=== PATIENT | male | born 1965 | race Caucasian/White ===

== ENCOUNTER 2017-01-18 23:22 | Emergency (ER) | payer BC ==
[2017-01-18 23:30] VITALS: BP 122/79; PULSE 100; TEMP 98; BMI 22.5
--- NOTE | 2017-01-18 23:35 | PDOC ---
History of Present Illness - General Chief Complaint: Pain, Acute Stated Complaint: ABCESS LEFT GROIN Time Seen by Provider: 01/18/17 23:30 History Source: Patient, Primary Care Provider Exam Limitations: No Limitations - History of Present Illness Initial Comments: 01/18/17 23:30 52 Y M cad, DM, sennt from pmd's office for lt groin abscess for 4 days. no fever or chills. no abd pain. no dysuria. in nad. Past History - Past Medical History Allergies/Adverse Reactions: Allergies Allergy/AdvReac Type Severity Reaction Status Date / Time No Known Allergies Allergy Verified 01/18/17 23:23 Home Medications: Ambulatory Orders Metformin HCl [Glucophage] 1,000 mg PO BID 05/14/14 Aspirin [ASA -] 81 mg PO DAILY 09/07/14 Glyburide 5 mg PO DAILY 09/07/14 Lisinopril [Prinivil -] 5 mg PO DAILY 09/07/14 Metoprolol Succinate [Toprol Xl] 75 mg PO DAILY 09/07/14 Pantoprazole Sodium [Protonix] 40 mg PO DAILY 09/07/14 Rosuvastatin [Crestor -] 40 mg PO DAILY 09/07/14 Ticagrelor [Brilinta] 90 mg PO BID 09/07/14 Isosorbide Mononitrate [Isosorbide Mononitrate ER] 30 mg PO DAILY 02/18/15 Benzonatate [Tessalon Pearls -] 100 mg PO TID #21 capsule 10/20/15 Cardiac Disorders: Yes (stent) Diabetes: Yes HTN: Yes Hypercholesterolemia: Yes - Surgical History Cardiac Surgery: Yes (cardiac stent 4) - Immunization History Immunization Up to Date: Yes - Psycho/Social/Smoking Cessation Hx Anxiety: No Suicidal Ideation: No Smoking History: Current every day smoker Have you smoked in the past 12 months: Yes Number of Cigarettes Smoked Daily: 20 If you are a former smoker, when did you quit?: this week Information on smoking cessation initiated: Yes 'Breaking Loose' booklet given: 10/20/15 Hx Alcohol Use: No Drug/Substance Use Hx: No Substance Use Type: None Hx Substance Use Treatment: No Review of Systems - Review of Systems Able to Perform ROS?: Yes Is the patient limited Setswana proficient: No Constitutional: No: Symptoms Reported Respiratory: No: Symptoms reported Cardiac (ROS): No: Symptoms Reported ABD/GI: No: Symptoms Reported : Yes: See HPI. No: Symptoms Reported *Physical Exam - Vital Signs Last Vital Signs Temp Pulse Resp BP Pulse Ox 98 F 100 H 16 122/79 100 01/18/17 23:25 01/18/17 23:25 01/18/17 23:25 01/18/17 23:25 01/18/17 23:25 - Physical Exam General Appearance: Yes: Nourished, Appropriately Dressed. No: Apparent Distress HEENT: positive: Normal ENT Inspection Respiratory/Chest: negative: Respiratory Distress Cardiovascular: positive: Regular Rhythm, Regular Rate Gastrointestinal/Abdominal: positive: Normal Bowel Sounds, Soft. negative: Tender Male Genitalia: positive: normal genitalia, other (lt pubic abscess 4x3 cm tender and fluctuant to bas of shaft. no bruits. away from inguinal canal.). negative: discharge, testicular tenderness, testicular mass Neurologic: positive: Normal Response, Motor Strength 5/5 Procedures - Incision and Drainage I&D Site: Left: Groin Betadine cleansed: No Anesthesia: 2% Lidocaine Volume(ml): 5 Blade Size: 11 Iodinated Packin/4 in Plain Packing: No Complications: none Dressing: Yes *DC/Admit/Observation/Transfer Diagnosis at time of Disposition: Abscess of groin - Discharge Dispostion Disposition: HOME Condition at time of disposition: Stable - Referrals Referrals: Kenji Mayberry [Primary Care Provider] - 24 hours - Patient Instructions Additional Instructions: KEEP PACKING AND DRESSING DRY REMOVE PACKING ON TUESDAY CALL DR. DEAN TOMORROW FOR APPOINTMENT YOU DON'T NEED ANTIBIOTICS AT THIS POINT TYLENOL/IBUPROFEN FOR PAIN 'RETURN IF FEVER SEVERE PAIN, OR BLEEDING
== END 2017-01-18 23:41 | disposition home or self-care (01) ==
LOC: FER 23:22
PROC: 0H9AXZZ Drainage of Inguinal Skin, External Approach (ICD-10-PCS; principal; 2017-01-18)
DX: L02.214 Cutaneous abscess of groin (principal); F17.210 Nicotine dependence, cigarettes, uncomplicated; I10 Essential (primary) hypertension; E11.9 Type 2 diabetes mellitus without complications; Z95.5 Presence of coronary angioplasty implant and graft; E78.00 Pure hypercholesterolemia, unspecified
CPT/HCPCS: 87070; 87186; 87205; 99281-25

== ENCOUNTER 2017-01-20 20:23 | Inpatient (IN) | payer BC ==
--- NOTE | 2017-01-20 20:44 | PDOC ---
History of Present Illness - General History Source: Patient Exam Limitations: No Limitations - History of Present Illness Initial Comments: 01/20/17 20:59 The patient is a 52 year old male, with a significant past medical history of CAD x4 stents, GERD, HTN, hypercholesterolemia, and DM (on insulin), who presents to the emergency department with recent nausea, vomiting, and diarrhea for about 2 days. The patient reports being seen in this ER tuesday, to have a left groin abscess removed. He reports since his ER visit being symptomatic, noting the development of multiple episodes of nonbloody vomiting and diarrhea. The patient reports the diarrhea started first, with the onset of vomiting soon after. He denies eating any new/strange foods. He reports being unable to keep any solids or liquids down secondary to vomiting. He reports having decreased pain at his abscess site. He denies having any previous prescriptions of antibiotics for his abscess. He denies any abdominal pain. He denies any recent fevers, headache or dizziness. He denies any recent chest pain or shortness of breath. He denies any recent dysuria, frequency, urgency or hematuria. PAST MEDICAL HISTORY: See HPI PAST SURGICAL HISTORY: Cardiac stents x4 FAMILY HISTORY: No pertinent history. SOCIAL HISTORY: Patient lives with family and is employed. MEDICATIONS: Reviewed. ALLERGIES: As per nursing notes. ROS General: No fevers or chills. HEENT: No change in vision. No sore throat. No ear pain CardioVascular: No chest pain or shortness of breath Respiratory:No cough, or wheezing. Gastrointestinal: + nausea, vomiting, diarrhea. No constipation. No rectal bleeding Genitourinary: No dysuria, hematuria, or frequency Musculoskeletal: No joint or muscle pain or swelling Neurologic: No headache, vertigo, dizziness or loss of consciousness Psychiatric: No depression Skin: No rashes or easy bruising Endocrine: no increased thirst or abnormal weight change Allergic: no skin or latex allergy All other systems reviewed and normal Exam: General: Well-nourished well-developed individual, no acute distress HEENT: Dry mucous membranes. Throat: Normal, tonsils normal, no erythema or exudate Neck: Supple, no meningeal signs, no lymphadenopathy Eyes: Pupils equal reactive and round, extraocular motion intact Chest: Nontender to palpation Cardiac: +tachycardia. S1-S2 normal, regular rate and rhythm, no murmurs rubs or gallops Respiratory: Lungs clear to auscultation bilateral Abdomen: Soft, nondistended, increased bowel sounds, nontender to palpation diffusely Extremities: LEFT GROIN: dressing in place. Post removal of dressing, packing was also removed incisions appear clean. No purulence, mild erythema to the area. But no increase in warmth or palpable collection. Skin: No rashes Neuro: Alert and oriented x3, nonfocal exam, grossly intact, normal gait Psych: Normal mood and affect <Cody Grey - Last Filed: 01/20/17 20:59> - General History Source: Patient Exam Limitations: No Limitations - History of Present Illness Initial Comments: 01/20/17 22:39 A portion of this note was documented by scribe services under my direction. I have reviewed the details of the note, within reason, and agree with the documentation. The case summary and management plan written by me. Assessment and plan This is a 52-year-old male who comes in complaining of nausea vomiting and diarrhea. Patient is a type II diabetic. Patient's blood work shows that he is very dehydrated with a hemoglobin of 18. Patient is being hydrated with IV normal saline. Patient has history of a recent I and D of a groin abscess given the fact that he is a diabetic I will ever the abscess cavity does look clean I was give patient a gram of Rocephin to cover him for any possible soft skin infection. Patient did complain of some chest pain his cardiogram shows a sinus tachycardia no acute ST-T wave changes. Sinus tachycardia likely secondary to his dehydration. Patient's initial troponin was negative. Patient blood work did show a high anion gap that was 21. Patient had a venous blood gas that showed a normal pH and a lactic acid that was negative the high anion gap is most likely secondary to ketosis and dehydration. Discussed admission with immediately would admit patient to a inpatient telemetry noncardiac telemetry bed. <Solo Lo I - Last Filed: 01/20/17 22:43> - General Chief Complaint: Nausea/Vomiting Stated Complaint: NAUSEA/VOMITING Time Seen by Provider: 01/20/17 20:28 Past History <Cody Grey - Last Filed: 01/20/17 20:59> - Past Medical History Cardiac Disorders: Yes (stent) Diabetes: Yes HTN: Yes Hypercholesterolemia: Yes - Surgical History Cardiac Surgery: Yes (cardiac stent 4) - Immunization History Immunization Up to Date: Yes - Psycho/Social/Smoking Cessation Hx Anxiety: No Suicidal Ideation: No Smoking History: Unknown if ever smoked Have you smoked in the past 12 months: Yes Number of Cigarettes Smoked Daily: 20 If you are a former smoker, when did you quit?: this week 'Breaking Loose' booklet given: 10/20/15 Hx Alcohol Use: No Drug/Substance Use Hx: No Substance Use Type: None Hx Substance Use Treatment: No <Solo Lo I - Last Filed: 01/20/17 22:43> - Past Medical History Allergies/Adverse Reactions: Allergies Allergy/AdvReac Type Severity Reaction Status Date / Time No Known Allergies Allergy Verified 01/18/17 23:23 Home Medications: Ambulatory Orders Metformin HCl [Glucophage] 1,000 mg PO BID 05/14/14 Aspirin [ASA -] 81 mg PO DAILY 09/07/14 Glyburide 5 mg PO DAILY 09/07/14 Lisinopril [Prinivil -] 5 mg PO DAILY 09/07/14 Metoprolol Succinate [Toprol Xl] 75 mg PO DAILY 09/07/14 Pantoprazole Sodium [Protonix] 40 mg PO DAILY 09/07/14 Rosuvastatin [Crestor -] 40 mg PO DAILY 09/07/14 Ticagrelor [Brilinta] 90 mg PO BID 09/07/14 Isosorbide Mononitrate [Isosorbide Mononitrate ER] 30 mg PO DAILY 02/18/15 Benzonatate [Tessalon Pearls -] 100 mg PO TID #21 capsule 10/20/15 *Physical Exam - Vital Signs Last Vital Signs Temp Pulse Resp BP Pulse Ox 97.4 F L 108 H 18 128/78 100 01/20/17 20:28 01/20/17 20:28 01/20/17 20:28 01/20/17 20:28 01/20/17 20:28 <Cody Grey - Last Filed: 01/20/17 20:59> - Vital Signs Last Vital Signs Temp Pulse Resp BP Pulse Ox 97.4 F L 108 H 18 128/78 100 01/20/17 20:28 01/20/17 20:28 01/20/17 20:28 01/20/17 20:28 01/20/17 20:28 <Solo Lo I - Last Filed: 01/20/17 22:43> ED Treatment Course - LABORATORY CBC & Chemistry Diagram: 01/20/17 21:01 01/20/17 21:01 <Solo Lo I - Last Filed: 01/20/17 22:43> *DC/Admit/Observation/Transfer - Attestations Scribe Attestion: 01/20/17 20:46 Documentation prepared by Cody Grey, acting as certified medical technician assistant for Solo oL MD. <Cody Grey - Last Filed: 01/20/17 20:59> - Discharge Dispostion Admit: Yes <Solo Lo I - Last Filed: 01/20/17 22:43> Diagnosis at time of Disposition: Groin abscess, Gastroenteritis, Dehydration, Hyperglycemia Chest pain Qualifiers: Chest pain type: unspecified Qualified Code(s): R07.9 - Chest pain, unspecified - Discharge Dispostion Condition at time of disposition: Stable - Referrals Referrals: Kenji Mayberry [Primary Care Provider] -
[2017-01-20] MEDS ORDERED: SODIUM CHLORIDE 1,000 ML IV ONE (20:47)
[2017-01-20] MEDS ORDERED: ONDANSETRON 4 MG/2 ML VIAL IVPB ONE (20:48)
[2017-01-20] MEDS ORDERED: HEMOQUE TEST 1 EACH EACH ONE (20:55)
[2017-01-20] MEDS ORDERED: ONDANSETRON 4 MG/2 ML VIAL ONE (20:59)
[2017-01-20 21:09] LABS: URINE APPEARANCE Clear; URINE BILIRUBIN 1+ (NEGATIVE); URINE BLOOD Negative (NEGATIVE); URINE GLUCOSE (UA) 2+ (NEGATIVE); URINE KETONE 4+ (NEGATIVE); URINE LEUK ESTERASE Negative (NEGATIVE); URINE NITRITE Negative (NEGATIVE); URINE PROTEIN Negative (NEGATIVE); URINE UROBILINOGEN 0.2 E.U/dl (0.2-1.0)
[2017-01-20 21:10] LABS: BASOPHIL 3.5 % (0-2.0); MCH 29.5 pg (25.7-33.7); MCHC 33.7 g/dl (32.0-35.9); MEAN CELL VOLUME 87.4 fl (80-96); MEAN PLT VOLUME 7.7 fl (7.5-11.1); NEUTROPHILS 76.1 % (42.8-82.8); PLATELET COUNT 404 K/MM3 (134-434); RDW 14.2 % (11.9-15.9); WHITE BLOOD COUNT 12.5 K/mm3 (4.0-10.0)
[2017-01-20 21:17] LABS: URINE COLOR YELLOW
[2017-01-20 21:25] LABS: ALBUMIN 3.9 g/dl (3.5-5.0); ALK PHOS 96 U/L (32-92); ANION GAP 21 (8-16); BILIRUBIN,TOTAL 0.6 mg/dl (0.2-1.0); CALCIUM 13.7 mg/dl (8.4-10.2); CO2 23 mmol/L (22-28); CPK(DFH) 27 IU/L (38-174); GLUCOSE,RANDOM 274 mg/dl (74-106); SGOT/AST 15 U/L (10-42); SGPT/ALT 13 U/L (10-40); TOT PROT 7.2 g/dl (6.4-8.3)
[2017-01-20 21:55] LABS: TROPONIN I (DFP) < 0.03 ng/ml (0.03-0.50)
[2017-01-20 22:18] LABS: VENOUS BLOOD GAS HCO3 23.5 meq/L (22-26)
[2017-01-20 22:19] LABS: VENOUS PH 7.37 (7.35-7.45)
[2017-01-20] MEDS ORDERED: cefTRIAXone 1 GM/50 ML BAG (PRE-DOCKED) IVPB STA (22:38)
[2017-01-20] MEDS ORDERED: cefTRIAXone SODIUM 1 GM VIAL ONE (22:40)
[2017-01-20] MEDS ORDERED: ACETAMINOPHEN 325 MG TABLET (FP) PO PRN (23:50)
[2017-01-21] MEDS: SODIUM CHLORIDE 1,000 ML IV SCH ×2 (00:56→23:19)
[2017-01-21 01:30] VITALS: BMI 21.9
[2017-01-21] MEDS ORDERED: RANITIDINE HCL 150 MG TABLET (FP) PO ONE (03:10)
[2017-01-21 05:46] LABS: TROPONIN I < 0.02 ng/ml (0.00-0.05)
[2017-01-21] MEDS: glyBURIDE 5 MG TABLET (UD) PO SCH (06:33)
[2017-01-21 08:52] LABS: BASOPHIL 1.1 % (0-2.0); EOSINOPHIL 1.5 % (0-4.5); MCH 29.6 pg (25.7-33.7); MCHC 33.8 g/dl (32.0-35.9); MEAN CELL VOLUME 87.6 fl (80-96); MEAN PLT VOLUME 7.6 fl (7.5-11.1); NEUTROPHILS 72.6 % (42.8-82.8); PLATELET COUNT 350 K/MM3 (134-434); WHITE BLOOD COUNT 10.4 K/mm3 (4.0-10.0)
[2017-01-21 09:05] LABS: ALBUMIN 3.2 g/dl (3.5-5.0); ALK PHOS 75 U/L (32-92); ANION GAP 13 (8-16); BILIRUBIN,TOTAL 0.3 mg/dl (0.2-1.0); CALCIUM 10.6 mg/dl (8.4-10.2); CO2 18 mmol/L (22-28); CREATININE 0.9 mg/dl (0.6-1.3); GLUCOSE,RANDOM 171 mg/dl (74-106); SGOT/AST 11 U/L (10-42); SGPT/ALT 11 U/L (10-40); TOT PROT 5.9 g/dl (6.4-8.3)
[2017-01-21] MEDS ORDERED: CEFTRIAXONE 1 GM in DEXTROSE 5%-WATER - 100 ML IVPB SCH (10:00)
[2017-01-21] MEDS: LISINOPRIL 5 MG TABLET (FP) PO SCH (10:57)
[2017-01-21] MEDS: cefTRIAXone 1 GM/50 ML BAG (PRE-DOCKED) IVPB SCH (10:57)
[2017-01-21] MEDS: ISOSORBIDE MONONITRATE 30 MG TAB.SR.24H (FP) PO SCH (10:57)
--- NOTE | 2017-01-21 11:53 | HP ---
Admitting History and Physical - Primary Care Physician PCP: Jaxon Tsai - Admission History of Present Illness: The patient is a 52 year old male, with a significant past medical history of CAD x4 stents, GERD, HTN, hypercholesterolemia, and DM (on insulin), who presents to the emergency department with recent nausea, vomiting, and diarrhea for about 2 days. The patient reports being seen in this ER tuesday, to have a left groin abscess removed. He reports since his ER visit being symptomatic, noting the development of multiple episodes of nonbloody vomiting and diarrhea. He reports being unable to keep any solids or liquids down secondary to vomiting. He reports having decreased pain at his abscess site. He denies having any previous prescriptions of antibiotics for his abscess. - Past Medical History Cardiovascular: Yes: HTN, Hyperlipdemia, [place] Endocrine: Yes: Diabetes Mellitus - Past Surgical History Past Surgical History: Yes: Stent - Smoking History Smoking history: Unknown if ever smoked Have you smoked in the past 12 months: Yes Aproximately how many cigarettes per day: 20 If you are a former smoker, when did you quit?: this week - Alcohol/Substance Use Hx Alcohol Use: No Home Medications - Allergies Allergies/Adverse Reactions: Allergies Allergy/AdvReac Type Severity Reaction Status Date / Time No Known Allergies Allergy Verified 01/18/17 23:23 - Home Medications Home Medications: Ambulatory Orders Metformin HCl [Glucophage] 1,000 mg PO BID 05/14/14 Aspirin [ASA -] 81 mg PO DAILY 09/07/14 Glyburide 5 mg PO DAILY 09/07/14 Lisinopril [Prinivil] 5 mg PO DAILY 09/07/14 Metoprolol Succinate [Toprol Xl] 75 mg PO DAILY 09/07/14 Pantoprazole Sodium [Protonix] 40 mg PO DAILY 09/07/14 Rosuvastatin [Crestor -] 40 mg PO DAILY 09/07/14 Ticagrelor [Brilinta -] 90 mg PO BID 09/07/14 Isosorbide Mononitrate [Isosorbide Mononitrate ER] 30 mg PO DAILY 02/18/15 Benzonatate [Tessalon Perle -] 100 mg PO TID #21 capsule 10/20/15 Amoxicillin/Potassium Clav [Augmentin 875-125 Tablet] 1 each PO BID #20 tablet 02/24/17 Physical Examination Vital Signs: Vital Signs Temperature 98.2 F 01/21/17 07:06 Pulse Rate 87 01/21/17 07:06 Respiratory Rate 19 01/21/17 07:06 Blood Pressure 139/74 01/21/17 07:06 O2 Sat by Pulse Oximetry (%) 95 01/20/17 23:48 Constitutional: Yes: No Distress HENT: Yes: Atraumatic Neck: Yes: Supple Cardiovascular: Yes: Regular Rate and Rhythm Respiratory: Yes: CTA Bilaterally Gastrointestinal: Yes: Normal Bowel Sounds Renal/: Yes: Other (abcess left groin seems healing) Extremities: Yes: WNL Neurological: Yes: Alert, Oriented Labs: CBC, BMP 01/21/17 07:00 01/21/17 07:00 Problem List - Problems (1) Dehydration Assessment/Plan: iv fluids Code(s): E86.0 - DEHYDRATION (2) Gastroenteritis Assessment/Plan: prn zofran ivf full liquid diet Code(s): K52.9 - NONINFECTIVE GASTROENTERITIS AND COLITIS, UNSPECIFIED (3) Groin abscess Assessment/Plan: seems healing on iv abx now will get id to look Code(s): L02.214 - CUTANEOUS ABSCESS OF GROIN Assessment/Plan Laboratory Tests 01/20/17 01/20/17 01/20/17 20:58 21:01 21:01 WBC 12.5 H RBC 6.11 H Hgb 18.0 H Hct 53.3 H MCV 87.4 MCHC 33.7 RDW 14.2 Plt Count 404 MPV 7.7 Neutrophils % 76.1 Lymphocytes % 15.9 Monocytes % 3.5 L Eosinophils % 1.0 Basophils % 3.5 H D VBG pH POC VBG pCO2 POC VBG pO2 Mixed VBG HCO3 Sodium Potassium Chloride Carbon Dioxide Anion Gap BUN Creatinine Creat Clearance w eGFR POC Glucometer [phone] Random Glucose Lactic Acid Calcium Total Bilirubin AST ALT Alkaline Phosphatase Creatine Kinase Troponin I Total Protein Albumin Lipase Urine Color Yellow Urine Appearance Clear Urine pH 5.0 Ur Specific [place] 1.025 Urine Protein Negative Urine Glucose (UA) 2+ H Urine Ketones 4+ H Urine Blood Negative Urine Nitrite Negative Urine Bilirubin 1+ H Urine Urobilinogen 0.2 e.u/dl Ur Leukocyte Esterase Negative 01/20/17 01/20/17 01/20/17 21:01 21:01 21:46 WBC RBC Hgb Hct MCV MCHC RDW Plt Count MPV Neutrophils % Lymphocytes % Monocytes % Eosinophils % Basophils % VBG pH 7.37 POC VBG pCO2 42.2 POC VBG pO2 49.7 L Mixed VBG HCO3 23.5 Sodium 133 L Potassium 4.5 Chloride 89 L Carbon Dioxide 23 Anion Gap 21 H BUN 20 H D Creatinine 1.0 D Creat Clearance w eGFR > 60 POC Glucometer Random Glucose 274 H Lactic Acid Calcium 13.7 H D Total Bilirubin 0.6 AST 15 D ALT 13 D Alkaline Phosphatase 96 H Creatine Kinase 27 L Troponin I < 0.03 L D Total Protein 7.2 Albumin 3.9 Lipase 30 Urine Color Urine Appearance Urine pH Ur Specific [place] Urine Protein Urine Glucose (UA) Urine Ketones Urine Blood Urine Nitrite Urine Bilirubin Urine Urobilinogen Ur Leukocyte Esterase 01/20/17 01/21/17 01/21/17 21:46 04:45 06:25 WBC RBC Hgb Hct MCV MCHC RDW Plt Count MPV Neutrophils % Lymphocytes % Monocytes % Eosinophils % Basophils % VBG pH POC VBG pCO2 POC VBG pO2 Mixed VBG HCO3 Sodium Potassium Chloride Carbon Dioxide Anion Gap BUN Creatinine Creat Clearance w eGFR POC Glucometer 168 Random Glucose Lactic Acid 1.594 Calcium Total Bilirubin AST ALT Alkaline Phosphatase Creatine Kinase 25 L Troponin I < 0.02 Total Protein Albumin Lipase Urine Color Urine Appearance Urine pH Ur Specific [place] Urine Protein Urine Glucose (UA) Urine Ketones Urine Blood Urine Nitrite Urine Bilirubin Urine Urobilinogen Ur Leukocyte Esterase 01/21/17 01/21/17 07:00 07:00 WBC 10.4 H RBC 5.06 Hgb 15.0 D Hct 44.4 D MCV 87.6 MCHC 33.8 RDW 14.0 Plt Count 350 MPV 7.6 Neutrophils % 72.6 Lymphocytes % 16.5 Monocytes % 8.3 D Eosinophils % 1.5 Basophils % 1.1 VBG pH POC VBG pCO2 POC VBG pO2 Mixed VBG HCO3 Sodium 129 L Potassium 4.7 Chloride 98 D Carbon Dioxide 18 L D Anion Gap 13 BUN 17 Creatinine 0.9 Creat Clearance w eGFR > 60 POC Glucometer Random Glucose 171 H D Lactic Acid Calcium 10.6 H D Total Bilirubin 0.3 D AST 11 D ALT 11 Alkaline Phosphatase 75 D Creatine Kinase Troponin I Total Protein 5.9 L Albumin 3.2 L Lipase Urine Color Urine Appearance Urine pH Ur Specific [place] Urine Protein Urine Glucose (UA) Urine Ketones Urine Blood Urine Nitrite Urine Bilirubin Urine Urobilinogen Ur Leukocyte Esterase Active Medications Generic Name Dose Route Start Last Admin Trade Name Lizeth PRN Reason Stop Dose Admin Acetaminophen 650 mg 01/20/17 23:50 Tylenol - PO Q6H PRN FEVER OR PAIN Ceftriaxone Sodium 1 gm 01/21/17 10:00 01/21/17 10:57 Rocephin 1gm Ivpb (Pre-Docked) IVPB 1 gm DAILY OLIVER Administration Glyburide 5 mg 01/21/17 07:00 01/21/17 06:33 Diabeta - PO 5 mg DAILY@0700 OLIVER Administration Sodium Chloride 1,000 mls @ 75 mls/hr 01/20/17 23:45 01/21/17 00:56 Normal Saline - IV 75 mls/hr ASDIR OLIVER Administration Isosorbide Mononitrate 30 mg 01/21/17 10:00 01/21/17 10:57 Imdur - PO 30 mg DAILY OLIVER Administration Lisinopril 5 mg 01/21/17 10:00 01/21/17 10:57 Prinivil PO 5 mg DAILY OLIVER Administration ID NOTE REVIEWED AND DISCUSSED DC IN AM ON PO ABX
--- NOTE | 2017-01-21 12:13 | EKG ---
Test Reason : Blood Pressure : / mmHG Vent. Rate : 108 BPM Atrial Rate : 108 BPM P-R Int : 146 ms QRS Dur : 084 ms QT Int : 300 ms P-R-T Axes : 059 017 066 degrees QTc Int : 402 ms SINUS TACHYCARDIA CANNOT RULE OUT INFERIOR INFARCT , AGE UNDETERMINED ABNORMAL ECG WHEN COMPARED WITH ECG OF 18-FEB-2015 14:34, Criteria for possible INFERIOR INFARCT IS NOW PRESENT Confirmed by KAMALJIT FREEMAN MD ([id number]) on 01/21/2017 12:13:06 PM Referred By: KEIRY Confirmed By:KAMALJIT FREEMAN MD
--- NOTE | 2017-01-21 17:53 | CONSULT ---
Consult Consult Specialty:: infectious diseases Referred by:: Reason for Consultation:: groin abscess - History of Present Illness Chief Complaint: dirrhoea and vomiting History of Present Illness: The patient is a 52 year old male, with a significant past medical history of CAD x4 stents, GERD, HTN, hypercholesterolemia, and DM (on insulin), who presents to the emergency department with recent nausea, vomiting, and diarrhea for about 2 days. The patient reports being seen in this ER tuesday, to have a left groin abscess removed. He reports since his ER visit being symptomatic, noting the development of multiple episodes of nonbloody vomiting and diarrhea. patient mentions that dirrhoea and vomiting was associated with abd pain and burning patient has not had issues today and denies any vomiting or dirrhoea patient feels much better patient has been startd on ceftriaxone according to the patient after the drainage of abscess he was not given any abx and was send home without any abx patient admitted with leukocytosis - History Source History Provided By: Family Member Limitations to Obtaining History: Language Barrier - Past Medical History Cardio/Vascular: Yes: HTN, Hyperlipdemia, [place] Endocrine: Yes: Diabetes Mellitus - Past Surgical History Past Surgical History: Yes: Stent - Alcohol/Substance Use Hx Alcohol Use: No - Smoking History Smoking history: Unknown if ever smoked Have you smoked in the past 12 months: Yes Aproximately how many cigarettes per day: 20 If you are a former smoker, when did you quit?: this week - Social History Usual Living Arrangement: With Spouse Home Medications - Allergies Allergies/Adverse Reactions: Allergies Allergy/AdvReac Type Severity Reaction Status Date / Time No Known Allergies Allergy Verified 01/18/17 23:23 - Home Medications Home Medications: Ambulatory Orders Metformin HCl [Glucophage] 1,000 mg PO BID 05/14/14 Aspirin [ASA -] 81 mg PO DAILY 09/07/14 Glyburide 5 mg PO DAILY 09/07/14 Lisinopril [Prinivil -] 5 mg PO DAILY 09/07/14 Metoprolol Succinate [Toprol Xl] 75 mg PO DAILY 09/07/14 Pantoprazole Sodium [Protonix] 40 mg PO DAILY 09/07/14 Rosuvastatin [Crestor -] 40 mg PO DAILY 09/07/14 Ticagrelor [Brilinta] 90 mg PO BID 09/07/14 Isosorbide Mononitrate [Isosorbide Mononitrate ER] 30 mg PO DAILY 02/18/15 Benzonatate [Tessalon Pearls -] 100 mg PO TID #21 capsule 10/20/15 Review of Systems - Review of Systems Constitutional: reports: Weakness Eyes: reports: No Symptoms HENT: reports: No Symptoms Neck: reports: No Symptoms Cardiovascular: reports: No Symptoms Respiratory: reports: No Symptoms Gastrointestinal: reports: No Symptoms Genitourinary: reports: No Symptoms Musculoskeletal: reports: No Symptoms Integumentary: reports: Other (pain at the draiange site) Neurological: reports: No Symptoms Endocrine: reports: No Symptoms Hematology/Lymphatic: reports: No Symptoms Psychiatric: reports: No Symptoms Physical Exam Vital Signs: Vital Signs Temperature 98.9 F 01/21/17 14:05 Pulse Rate 84 01/21/17 14:05 Respiratory Rate 18 01/21/17 14:05 Blood Pressure 96/48 01/21/17 14:05 O2 Sat by Pulse Oximetry (%) 95 01/20/17 23:48 Constitutional: Yes: No Distress, Calm, Thin Eyes: Yes: Conjunctiva Clear HENT: Yes: Atraumatic, Normocephalic Neck: Yes: Supple, Trachea Midline Cardiovascular: Yes: Regular Rate and Rhythm Respiratory: Yes: Regular, CTA Bilaterally Gastrointestinal: Yes: Normal Bowel Sounds, Soft Musculoskeletal: Yes: WNL Extremities: Yes: WNL Wound/Incision: Yes: Clean/Dry, Other (site of the abscess draianage in the groin region healing well no inflamamtion 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
[2017-01-21] MEDS: METOPROLOL SUCCINATE 25 MG TAB.SR.24H (FP) PO SCH (21:47)
[2017-01-21] MEDS: ASPIRIN 81 MG CHEWABLE TABLETS PO SCH (21:47)
[2017-01-22] MEDS: glyBURIDE 5 MG TABLET (UD) PO SCH (06:53)
[2017-01-22 08:41] LABS: BASOPHIL 1.1 % (0-2.0); EOSINOPHIL 1.9 % (0-4.5); MCH 30.3 pg (25.7-33.7); MCHC 34.2 g/dl (32.0-35.9); MEAN CELL VOLUME 88.6 fl (80-96); MEAN PLT VOLUME 7.6 fl (7.5-11.1); NEUTROPHILS 68.3 % (42.8-82.8); PLATELET COUNT 330 K/MM3 (134-434); RDW 14.2 % (11.9-15.9); WHITE BLOOD COUNT 9.9 K/mm3 (4.0-10.0)
[2017-01-22] MEDS: LISINOPRIL 5 MG TABLET (FP) PO SCH (10:00)
[2017-01-22] MEDS: cefTRIAXone 1 GM/50 ML BAG (PRE-DOCKED) IVPB SCH (10:00)
[2017-01-22] MEDS: ISOSORBIDE MONONITRATE 30 MG TAB.SR.24H (FP) PO SCH (10:00)
[2017-01-22] MEDS: ASPIRIN 81 MG CHEWABLE TABLETS PO SCH (10:01)
[2017-01-22] MEDS: METOPROLOL SUCCINATE 25 MG TAB.SR.24H (FP) PO SCH (10:04)
[2017-01-22 10:05] LABS: ALBUMIN 3.2 g/dl (3.5-5.0); ALK PHOS 66 U/L (32-92); ANION GAP 10 (8-16); CALCIUM 9.3 mg/dl (8.4-10.2); CO2 23 mmol/L (22-28); CREATININE 0.7 mg/dl (0.6-1.3); GLUCOSE,RANDOM 127 mg/dl (74-106); SGOT/AST 14 U/L (10-42); SGPT/ALT 11 U/L (10-40); TOT PROT 5.7 g/dl (6.4-8.3)
[2017-01-22 10:46] LABS: BILIRUBIN,TOTAL < 0.3 mg/dl (0.2-1.0)
--- NOTE | 2017-01-22 12:57 | PN ---
Progress Note, Physician History of Present Illness: patient doing well no dirrhoea tolerating regular food - Current Medication List Current Medications: Active Medications Acetaminophen (Tylenol -) 650 mg PO Q6H PRN PRN Reason: FEVER OR PAIN Aspirin (Asa -) [address] [facility] Last Admin: 01/22/17 10:01 Dose: 81 mg Ceftriaxone Sodium (Rocephin 1gm Ivpb (Pre-Docked)) [address] [facility] Last Admin: 01/22/17 10:00 Dose: 1 gm Glyburide (Diabeta -) 5 mg PO DAILY@0700 [facility] Last Admin: 01/22/17 06:53 Dose: 5 mg Sodium Chloride (Normal Saline -) 1,000 mls @ 75 mls/hr IV ASDIR [facility] Last Admin: 01/21/17 23:19 Dose: 75 mls/hr Isosorbide Mononitrate (Imdur -) [address] [facility] Last Admin: 01/22/17 10:00 Dose: 30 mg Lisinopril (Prinivil) [address] [facility] Last Admin: 01/22/17 10:00 Dose: 5 mg Metoprolol Succinate (Toprol Xl -) [address] [facility] Last Admin: 01/22/17 10:04 Dose: 75 mg - Objective Vital Signs: Vital Signs Temperature 98.5 F 01/22/17 07:05 Pulse Rate 73 01/22/17 07:05 Respiratory Rate 18 01/22/17 08:09 Blood Pressure 115/74 01/22/17 07:05 O2 Sat by Pulse Oximetry (%) 97 01/22/17 08:09 Constitutional: Yes: No Distress, Calm Neck: Yes: Supple, Trachea Midline Cardiovascular: Yes: Regular Rate and Rhythm Respiratory: Yes: Regular, CTA Bilaterally Gastrointestinal: Yes: Normal Bowel Sounds, Soft Extremities: Yes: WNL Wound/Incision: Yes: Clean/Dry Neurological: Yes: Alert, Oriented Labs: CBC, BMP 01/22/17 07:22 01/22/17 07:22 Assessment/Plan - Problems (1) Dehydration Code(s): E86.0 - DEHYDRATION (2) Gastroenteritis Code(s): K52.9 - NONINFECTIVE GASTROENTERITIS AND COLITIS, UNSPECIFIED (3) Groin abscess Code(s): L02.214 - CUTANEOUS ABSCESS OF GROIN plan patient can be changed to oral abx augmentin 875mg twice a day for another 5 days
[2017-01-22 14:34] VITALS: BP 109/55; PULSE 75; TEMP 98.6
--- NOTE | 2017-01-24 21:05 | DS ---
Physical Examination Vital Signs: Vital Signs Temperature 98.6 F 01/22/17 14:34 Pulse Rate 75 01/22/17 14:34 Respiratory Rate 16 01/22/17 14:34 Blood Pressure 109/55 01/22/17 14:34 O2 Sat by Pulse Oximetry (%) 97 01/22/17 08:09 HENT: Yes: Atraumatic Neck: Yes: Supple Cardiovascular: Yes: Regular Rate and Rhythm Respiratory: Yes: CTA Bilaterally Gastrointestinal: Yes: Normal Bowel Sounds Neurological: Yes: Alert, Oriented Labs: CBC, BMP 01/22/17 07:22 01/22/17 07:22 Discharge Summary Reason For Visit: DEHYDRATION, CP, GASTROENTERITIS, GROIN ABCESS Condition: Stable - Instructions Referrals: Katherin Mena MD [Staff Physician] - Jaxon Tsai MD [Staff Physician] - Disposition: HOME - Home Medications Comprehensive Discharge Medication List: Ambulatory Orders Metformin HCl [Glucophage] 1,000 mg PO BID 05/14/14 Aspirin [ASA -] 81 mg PO DAILY 09/07/14 Glyburide 5 mg PO DAILY 09/07/14 Lisinopril [Prinivil] 5 mg PO DAILY 09/07/14 Metoprolol Succinate [Toprol Xl] 75 mg PO DAILY 09/07/14 Pantoprazole Sodium [Protonix] 40 mg PO DAILY 09/07/14 Rosuvastatin [Crestor -] 40 mg PO DAILY 09/07/14 Ticagrelor [Brilinta -] 90 mg PO BID 09/07/14 Isosorbide Mononitrate [Isosorbide Mononitrate ER] 30 mg PO DAILY 02/18/15 Benzonatate [Tessalon Perle -] 100 mg PO TID #21 capsule 10/20/15 Amoxicillin/Potassium Clav [Augmentin 875-125 Tablet] 1 each PO BID #20 tablet 01/21/17 [place]
== END 2017-01-22 15:00 | disposition home or self-care (01) | DRG 392 ==
LOC: FER 20:23 → FM/S 22:42
PROVIDERS: ADMIT Internal Medicine; ATTEND Internal Medicine
DX: K52.89 Other specified noninfective gastroenteritis and colitis (principal); L02.214 Cutaneous abscess of groin; E86.0 Dehydration; I25.10 Atherosclerotic heart disease of native coronary artery without angina pectoris; I10 Essential (primary) hypertension; E78.00 Pure hypercholesterolemia, unspecified; E11.65 Type 2 diabetes mellitus with hyperglycemia; K21.9 Gastro-esophageal reflux disease without esophagitis; I25.2 Old myocardial infarction; Z95.5 Presence of coronary angioplasty implant and graft
CPT/HCPCS: 36415; 80053; 81003; 82550; 82803; 83605; 83690; 84484; 85025; 87040; 93005; 99284-25

== ENCOUNTER 2017-04-30 21:22 | Emergency (ER) | payer BC ==
[2017-04-30 21:29] VITALS: BP 154/82; PULSE 80; TEMP 97.5; BMI 23.4
--- NOTE | 2017-04-30 21:45 | PDOC ---
History of Present Illness - History of Present Illness Initial Comments: 04/30/17 21:49 The patient is a 52 year old male, with a significant past medical history of hypertension, hyperlipidemia, diabetes, who presents to the emergency department with a blister to the posterior aspect of his right foot. He reports wearing a pair of boat shoes without socks a couple of weeks ago and then a few days ago and developed a blister to his right posterior foot. He states he has been wearing sandals to avoid shoes rubbing on the blister. He presents for evaluation of his blister because the blister has not resolved. He denies any other complaints including fever, generalized weakness. Allergies: NKDA PCP - Dr. Cristobal Mayberry <Dipika Strange - Last Filed: 04/30/17 21:49> <Leobardo Truong - Last Filed: 05/04/17 10:23> - General Chief Complaint: Wound Stated Complaint: FOOT PROBLEM Past History <Dipika Strange - Last Filed: 04/30/17 21:49> - Past Medical History Cardiac Disorders: Yes (stent) Diabetes: Yes HTN: Yes Hypercholesterolemia: Yes - Surgical History Cardiac Surgery: Yes (cardiac stent 4) - Immunization History Immunization Up to Date: Yes - Psycho/Social/Smoking Cessation Hx Anxiety: No Suicidal Ideation: No Smoking History: Current every day smoker Have you smoked in the past 12 months: Yes Number of Cigarettes Smoked Daily: 20 If you are a former smoker, when did you quit?: this week Information on smoking cessation initiated: Yes 'Breaking Loose' booklet given: 04/30/17 Hx Alcohol Use: No Drug/Substance Use Hx: No Substance Use Type: None Hx Substance Use Treatment: No <Leobardo Truong - Last Filed: 05/04/17 10:23> - Past Medical History Allergies/Adverse Reactions: Allergies Allergy/AdvReac Type Severity Reaction Status Date / Time No Known Allergies Allergy Verified 01/18/17 23:23 Home Medications: Ambulatory Orders Metformin HCl [Glucophage] 1,000 mg PO BID 05/14/14 Aspirin [ASA -] 81 mg PO DAILY 09/07/14 Glyburide 5 mg PO DAILY 09/07/14 Lisinopril [Prinivil] 5 mg PO DAILY 09/07/14 Metoprolol Succinate [Toprol Xl] 75 mg PO DAILY 09/07/14 Pantoprazole Sodium [Protonix] 40 mg PO DAILY 09/07/14 Rosuvastatin [Crestor -] 40 mg PO DAILY 09/07/14 Ticagrelor [Brilinta -] 90 mg PO BID 09/07/14 Isosorbide Mononitrate [Isosorbide Mononitrate ER] 30 mg PO DAILY 02/18/15 Benzonatate [Tessalon Perle -] 100 mg PO TID #21 capsule 10/20/15 Review of Systems - Review of Systems Able to Perform ROS?: Yes Comments:: 04/30/17 21:49 CONSTITUTIONAL: No reported: Fever, Chills, Diaphoresis, Generalized Weakness, Malaise, Loss of Appetite GASTROINTESTINAL: No reported: Nausea, Vomiting, MUSCULOSKELETAL: No reported: Myalgia, Arthralgia, Joint Swelling, Back pain, Neck Pain SKIN: (+) right heel blister. No reported: Rash, Itching, Pallor <Dipika Strange - Last Filed: 04/30/17 21:49> *Physical Exam - Vital Signs Last Vital Signs Temp Pulse Resp BP Pulse Ox 97.5 F L 80 16 154/82 100 04/30/17 21:27 04/30/17 21:27 04/30/17 21:27 04/30/17 21:27 04/30/17 21:27 - Physical Exam Comments: 04/30/17 21:49 GENERAL: The patient is awake, alert, and fully oriented, Nontoxic - in no acute distress. EXTREMITIES: (+) intact blister to right heel. No induration, erythema or discharge. Normal range of motion of extremities, no edema. SKIN: (+) see Extremities. Warm, Dry, normal turgor, <Dipika Strange - Last Filed: 04/30/17 21:49> - Vital Signs Last Vital Signs Temp Pulse Resp BP Pulse Ox 97.5 F L 80 16 154/82 100 04/30/17 21:27 04/30/17 21:27 04/30/17 21:27 04/30/17 21:27 04/30/17 21:27 <Leobardo Truong - Last Filed: 05/04/17 10:23> Medical Decision Making - Medical Decision Making 05/04/17 10:23 52y M hx of dm, hrere with blister to the heel no signs of infection blister intact will recommend supportive care avoid wearing those shoes, keep blister intact to minize infection risk return precautions were discussed I discussed the physical exam findings, ancillary test results and final diagnoses with the patient. I answered all of the patient's questions. The patient was satisfied with the care received and felt comfortable with the discharge plan and treatment plan. The patient will call their primary care physician within 24 hours to arrange follow-up and will return to the Emergency Department with any new, persistent or worsening symptoms. <Leobardo Truong - Last Filed: 05/04/17 10:23> *DC/Admit/Observation/Transfer - Attestations Scribe Attestion: 04/30/17 21:50 Documentation prepared by Dipika Strange, acting as medical manager for Leobardo Truong MD, <Dipika Strange - Last Filed: 04/30/17 21:49> - Discharge Dispostion Admit: No <Leobardo Truong - Last Filed: 05/04/17 10:23> Diagnosis at time of Disposition: Blister of right heel Qualifiers: Encounter type: initial encounter Qualified Code(s): S90.821A - Blister ( nonthermal), right foot, initial encounter - Discharge Dispostion Disposition: HOME Condition at time of disposition: Stable - Referrals Referrals: Kenji Mayberry [Primary Care Provider] - - Patient Instructions Printed Discharge Instructions: DI for Blisters Additional Instructions: Return to the emergency department immediately with ANY new, persistent or worsening symptoms including any redness, purulent discharge or other concerns. Avoid any shoes that contact the blister until it heals. Do not pop the blister, if the blister pops on its own, you can apply bacitracin over it to minimize chance of infection. You MUST call and follow up with your doctor in 5 days for further evaluation of your symptoms. Results were discussed with you. Please make sure your doctor reviews the results of your emergency evaluation.
== END 2017-04-30 21:48 | disposition home or self-care (01) ==
LOC: FER 21:22
DX: S90.821A Blister (nonthermal), right foot, initial encounter (principal); I10 Essential (primary) hypertension; E78.00 Pure hypercholesterolemia, unspecified; Z95.5 Presence of coronary angioplasty implant and graft; E11.9 Type 2 diabetes mellitus without complications; F17.210 Nicotine dependence, cigarettes, uncomplicated
CPT/HCPCS: 99281-25

== ENCOUNTER 2020-08-06 12:13 | Inpatient (IN) | payer BC ==
--- NOTE | 2020-08-06 12:22 | PDOC ---
Rapid Medical Evaluation Chief Complaint: Chest Pain Time Seen by Provider: 08/06/20 12:18 Medical Evaluation: Allergies Allergy/AdvReac Type Severity Reaction Status Date / Time No Known Allergies Allergy Verified 01/18/17 23:23 08/06/20 12:19 I performed a brief in-person evaluation of this patient. Pt is a 55 y/o male with MSCP since last night that has been coming and going. Pain radiates to the right chest. He denies any sob. Pt is a smoker. Pt has h/o DM, 5 cardiac stent, HLD, HTN. Had a colonoscopy yesterday and was found to have a mass that he needs surgery for. Pertinent physical exam findings: speaking in full sentences, no reproducible CP to palpation, EKG done in triage I have ordered the following: cardiac work up Patient to proceed to ED for further evaluation. Discharge Disposition - Diagnosis Chest pain - Referrals - Patient Instructions - Post Discharge Activity
[2020-08-06 12:57] LABS: BASO % 1.6 % (0-2.0); EOS % 2.2 % (0-4.5); HEMATOCRIT 47.7 % (35.4-49); HEMOGLOBIN 16.1 GM/dL (11.7-16.9); LYMPH % 25.4 % (8-40); MCH 30.4 pg (25.7-33.7); MCHC 33.8 g/dl (32.0-35.9); MONO % 6.7 % (3.8-10.2); NEUT % 64.1 % (42.8-82.8); PLATELET COUNT 336 K/MM3 (134-434); RDW 15.1 % (11.9-15.9); WHITE BLOOD COUNT 9.2 K/mm3 (4.0-10.0)
[2020-08-06 13:11] LABS: INR 0.98 (0.83-1.09); PROTHROMBIN TIME (PATIENT) 11.6 SEC (9.7-13.0)
--- NOTE | 2020-08-06 13:11 | PDOC ---
History of Present Illness - General Chief Complaint: Chest Pain Stated Complaint: CHEST PAIN Time Seen by Provider: 08/06/20 12:18 - History of Present Illness Initial Comments: 55 YOM H/O [place] tx with 5 stents presenting for chest pain since AM. Colonoscopy yesterday afternoon. Was instructed to dc antiplatelet meds by GI. This AM woke up with CP, 5/10 intensity, substernal radiating to ribs on right side, took aspirin this AM, nothing makes better or worse, feels better now. Denies SOB, N/V, fever, chills, sweating. Past History - Medical History Allergies/Adverse Reactions: Allergies Allergy/AdvReac Type Severity Reaction Status Date / Time No Known Allergies Allergy Verified 08/06/20 12:22 Home Medications: Ambulatory Orders Aspirin [ASA -] 81 mg PO DAILY 09/07/14 Cyclobenzaprine HCl 5 mg PO TID PRN 04/23/20 Escitalopram Oxalate [Lexapro -] 5 mg PO DAILY #30 tablet 04/23/20 Insulin Glargine/Lixisenatide [[place]a 100 Unit-33 Mcg/ml Pen] 40 unit SQ DAILY 04/23/20 Lisinopril 10 mg PO DAILY 04/23/20 Metoprolol Succinate 100 mg PO DAILY 04/23/20 Omeprazole 40 mg PO DAILY 04/23/20 Prasugrel HCl 10 mg PO DAILY 04/23/20 Anemia: No Asthma: No Cancer: No Cardiac Disorders: Yes (stentx 5, 2006, 2014,CAD) CVA: No COPD: No Dementia: No Diabetes: Yes (IDDM) GI Disorders: No Disorders: No HTN: Yes Hypercholesterolemia: Yes Liver Disease: No Seizures: No Thyroid Disease: No - Surgical History Abdominal Surgery: No Appendectomy: No Cardiac Surgery: Yes (cardiac stent 5) Cholecystectomy: No Lung Surgery: No Neurologic Surgery: No Orthopedic Surgery: No - Immunization History Immunization Up to Date: Yes - Psycho-Social/Smoking History Smoking History: Current every day smoker Have you smoked in the past 12 months: No Number of Cigarettes Smoked Daily: 20 If you are a former smoker, when did you quit?: this week Information on smoking cessation initiated: No 'Breaking Loose' booklet given: 04/30/17 - Substance Abuse Hx (Audit-C & DAST Scrn) How often the patient has a drink containing alcohol: Never Score: In Men: 4 or > Positive; In Women: 3 or > Positive: 0 Screen Result (Pos requires Nsg. Audit-10AR): Negative In the last yr the pt used illegal drug/Rx for NonMed reason: No Score: Yes response is considered Positive: 0 Screen Result (Positive result requires Nsg. DAST-10): Negative Review of Systems - Review of Systems Constitutional: Yes: See HPI HEENTM: Yes: See HPI Respiratory: Yes: See HPI Cardiac (ROS): Yes: See HPI ABD/GI: Yes: See HPI : Yes: See HPI Musculoskeletal: Yes: See HPI Integumentary: Yes: See HPI Neurological: Yes: See HPI Endocrine: Yes: See HPI Hematologic/Lymphatic: Yes: See HPI *Physical Exam - Vital Signs Last Vital Signs Temp Pulse Resp BP Pulse Ox 98.2 F 87 16 134/73 98 08/06/20 12:19 08/06/20 12:19 08/06/20 12:19 08/06/20 12:08/06/20 12:48 - Physical Exam General Appearance: Yes: Nourished, Appropriately Dressed HEENT: positive: EOMI, FERNANDO, Normal ENT Inspection, Normal Voice Neck: positive: Trachea midline, Normal Thyroid Respiratory/Chest: positive: Lungs Clear, Normal Breath Sounds Cardiovascular: positive: Regular Rhythm, Regular Rate, S1, S2 Gastrointestinal/Abdominal: positive: Normal Bowel Sounds, Flat, Soft ED Treatment Course - LABORATORY CBC & Chemistry Diagram: 08/06/20 12:35 08/06/20 12:35 - ADDITIONAL ORDERS Additional order review: 08/06/20 12:35 RBC 5.30 MCV 90.0 MCHC 33.8 RDW 15.1 MPV 7.0 L Neutrophils % 64.1 Lymphocytes % 25.4 Monocytes % 6.7 Eosinophils % 2.2 Basophils % 1.6 Medical Decision Making - Medical Decision Making 55 YOM H/O [place] tx with 5 stents presenting for chest pain since AM. Colonoscopy yesterday afternoon. Was instructed to dc antiplatelet meds by GI. This AM woke up with CP, 5/10 intensity, substernal radiating to ribs on right side, took aspirin this AM, nothing makes better or worse, feels better now. Denies SOB, N/V, fever, chills, sweating. Vitals on arrival wnl, PE unremarkable. ddx: ACS, MSK pain, GERD, costochondritis, pneumonia, aortic dissection plan: CBC. CMP, Cardiac Profile, CXR, EKG reassess: labs, imaging, EKG wnl, will admit for tele given history, consult cards for further eval/ recs on management. dispo: admit to tele Discharge - Discharge Information Problems reviewed: Yes Clinical Impression/Diagnosis: Chest pain - Follow up/Referral - Patient Discharge Instructions - Post Discharge Activity
[2020-08-06 13:47] LABS: ALBUMIN 3.7 g/dl (3.4-5.0); ALK PHOS 96 U/L (45-117); ANION GAP 9 MMOL/L (8-16); BILIRUBIN,TOTAL 0.4 mg/dL (0.2-1); BLOOD UREA NITROGEN 9.1 mg/dL (7-18); CALCIUM 9.1 mg/dL (8.5-10.1); CHLORIDE 103 mmol/L (98-107); CO2 25 mmol/L (21-32); CREATININE 0.9 mg/dL (0.55-1.3); GLUCOSE,RANDOM 287 mg/dL (74-106); MAGNESIUM 1.6 mg/dL (1.8-2.4); POTASSIUM 4.8 mmol/L (3.5-5.1); SGOT/AST 20 U/L (15-37); SGPT/ALT 23 U/L (13-61); SODIUM 137 mmol/L (136-145); TOT PROT 7.7 g/dl (6.4-8.2)
--- NOTE | 2020-08-06 14:27 | PDOC ---
Documentation entered by Antonio Wisdom SCRIBE, acting as scribe for Noy Tang MD. Noy Tang MD: This documentation has been prepared by the Artis desai Xhesika, SCRIBE, under my direction and personally reviewed by me in its entirety. I confirm that the documentation accurately reflects all work, treatment, procedures, and medical decision making performed by me. Attending Attestation - Resident Resident Name: Hemant Thomas - ED Attending Attestation I have performed the following: I have examined & evaluated the patient, The case was reviewed & discussed with the resident, I agree w/resident's findings & plan, Exceptions are as noted - HPI HPI: 08/06/20 13:17 The patient is a 55y/o M with a pmh of DM, HTN, HLD, and CAD s/p stents x5 who presents to the ED for chest pain. Pt reports his CP is located at the mid- sternal region, is sharp in nature, radiating to his R shoulder. Pt states he is on Aspirin, however, he did not take it the past 2 days because he had a colonoscopy yesterday. Pt states he took his medication this morning. Pt called his PCP who advised him to come to the ED for further evaluation. Pt states his symptoms have nearly resolved while in the ED. Allergies: NKDA PCP: Dr. Lazarus Patel - Physicial Exam PE: 08/06/20 14:21 General: well appearing Chest: CTAB, good air entry, no wheezes rales or rhonchi CVS: + s1 s2, RRR - Medical Decision Making 08/06/20 14:22 55 yo M with atypical chest pain, pt. unsure if this is similar to previous cardiac chest pain, possible ACS although EKG without ischemic changes vs. msk pain. Much lower suspicion for PE or dissection as symptoms nearly resolved and no SOB and not tachycardic and pt with good O2 sat. Plan: -labs -cxr -admit tele obs for chest pain in high risk cardiac patient This clinical encounter is taking place during a federal and state health care emergency attributable to the novel Schroeder Virus pandemic. The [employer] Inspector of the Department of Health and Human Services has declared, pursuant to the Public Health Service Act 319F-3 (42 U.S.C. 247d-6d), that a covered persons activities related to medical countermeasures against COVID-19 will be immune from liability under Federal and State law. Discharge - Discharge Information Problems reviewed: Yes Clinical Impression/Diagnosis: Chest pain - Follow up/Referral - Patient Discharge Instructions - Post Discharge Activity
[2020-08-06] MEDS ORDERED: CYCLOBENZAPRINE HCL 5 MG TABLET PO PRN (15:53)
--- NOTE | 2020-08-06 16:39 | CON.CARD ---
Consult Consult Specialty:: Cardiology Referred by:: Dr. 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 Marroquin in Dr. Patel's office and was referred for a stress test that is scheduled for 08/19. Yesterday underwent a colonoscopy. Now admitted with chest pain that started last night. Pt seen and examined today in nad and d/w his on the phone. States he has had pain on and off since last night including while in the ER. described as sharp, substernal radiating to the right of his chest as well as down to his R leg. States he spoke to his GI who did not think it was related to his colonoscopy. denies sob, palpitations, pnd, orthopnea, le edema. no exacerbation with exertion. no diaphoresis. - History Source History Provided By: Patient, Medical Record Limitations to Obtaining History: No Limitations - Past Medical History Cardio/Vascular: Yes: CAD, HTN, Hyperlipdemia, AR Endocrine: Yes: Diabetes Mellitus - Past Surgical History Past Surgical History: Yes: Stent - Alcohol/Substance Use Hx Alcohol Use: No - Smoking History Smoking history: Current every day smoker Have you smoked in the past 12 months: No Aproximately how many cigarettes per day: 20 If you are a former smoker, when did you quit?: this week - Social History Usual Living Arrangement: With Spouse Home Medications - Allergies Allergies/Adverse Reactions: Allergies Allergy/AdvReac Type Severity Reaction Status Date / Time No Known Allergies Allergy Verified 08/06/20 12:22 - Home Medications Home Medications: Ambulatory Orders Aspirin [ASA -] 81 mg PO DAILY 09/07/14 Cyclobenzaprine HCl 5 mg PO TID PRN 04/23/20 Escitalopram Oxalate [Lexapro -] 5 mg PO DAILY #30 tablet 04/23/20 Insulin Glargine/Lixisenatide [Soliqua 100 Unit-33 Mcg/ml Pen] 40 unit SQ DAILY 04/23/20 Lisinopril 10 mg PO DAILY 04/23/20 Metoprolol Succinate 100 mg PO DAILY 04/23/20 Omeprazole 40 mg PO DAILY 04/23/20 Prasugrel HCl 10 mg PO DAILY 04/23/20 Family Medical History Family History: Denies Review of Systems - Review of Systems Constitutional: denies: No Symptoms, Chills, Diaphoresis, Fever, Lethargy, Loss of Appetite, Malaise, Night Sweats, Unintentional Wgt. Loss, Weakness, Other Eyes: denies: No Symptoms, Blind Spots, Blurred Vision, Double Vision, Eye Pain, Floaters, Photophobia, Recent Change in Vision, Other HENT: denies: No Symptoms, Difficult Swallowing, Ear Discharge, Ear Pain, Epistaxis, Gingival Bleeding, Hearing Loss, Mouth Swelling, Nasal Congestion, Ocular Prosthesis, Throat Pain, Toothache, Ringing in Ears, Other Neck: denies: No Symptoms, Decreased ROM, Lumps, Pain on Movement, Stiffness, Swollen Glands, Tenderness, Other Cardiovascular: reports: Chest Pain. denies: No Symptoms, Edema, Palpitations, Shortness of Breath, Other Respiratory: denies: No Symptoms, Cough, Exercise Intolerance, Hemoptysis, Orthopnea, PND, Snoring, SOB, SOB on Exertion, Wheezing, Other Gastrointestinal: denies: No Symptoms, Abdominal Pain, Bloating, Constipation, Diarrhea, Dysphagia, Indigestion, Melena, Nausea, Rectal Bleeding, Vomiting, Vomiting Blood, Other Genitourinary: denies: No Symptoms, Burning, Discharge, Dysuria, Flank Pain, Frequency, Hematuria, Incontinence, Lesions, Menses, Pain, Testicular Mass, Testicular Pain, Testicular Swelling, Urgency, Vaginal Bleeding, Other Breasts: denies: No Symptoms Reported, See HPI, Breast Implants, Discharge from Nipple, Lumps, Pain, Skin Changes, Other Musculoskeletal: denies: No Symptoms, Back Pain, Crepitus, Decreased ROM, Extremity Pain, Joint Pain, Joint Swelling, Muscle Pain, Muscle Cramps, Muscle Weakness, Other Integumentary: denies: No Symptoms, Blister, Bruising, Change in Color, Eczema, Erythema, Incision, Lesions, Lump, Pallor, Pruritis, Rash, Wound, Other Neurological: denies: No Symptoms, Change in LOC, Change in Speech, Confusion, Dizziness, Headache, Incoordination, Numbness, Parasthesia, Pre-Existing Deficit, Seizure, Syncope, Tremors, Unsteady Gait, Weakness, Other Endocrine: denies: No Symptoms, Excessive Sweating, Flushing, Increased Hunger, Increased Thirst, Intolerance to Cold, Intolerance to Heat, Unexplained Weight Gain, Unexplained Weight Loss, Other Hematology/Lymphatic: denies: No Symptoms, Easily Bruised, Excessive Bleeding, Swollen Glands, Other Psychiatric: denies: No Symptoms, Altered Sleep Pattern, Anxiety, Depression, Hallucinations, Panic, Paranoia, Suicidal, Other - Risk Factors Known Risk Factors: Yes: Hypercholesterolemia, Hypertension, Prior AR /Emb Stroke Vital Signs: Vital Signs Temperature 98.2 F 08/06/20 12:19 Pulse Rate 87 08/06/20 12:19 Respiratory Rate 16 08/06/20 12:19 Blood Pressure 134/73 08/06/20 12:19 O2 Sat by Pulse Oximetry (%) 98 08/06/20 12:48 Constitutional: Yes: No Distress, Calm Eyes: Yes: Conjunctiva Clear, EOM Intact, PERRL HENT: Yes: Atraumatic, Normocephalic Neck: Yes: Supple, Trachea Midline Respiratory: Yes: Regular, CTA Bilaterally. No: Rales, Rhonchi, SOB, Wheezes Gastrointestinal: Yes: Normal Bowel Sounds, Soft. No: Distention, Tenderness Cardiovascular: Yes: Regular Rate and Rhythm. No: Bradycardia, Tachycardia, Pulse Irregular, Gallop, Rub, Varicosities JVD: No Carotid Bruit: No PMI: Non-Displaced Heart Sounds: Yes: S1, S2. No: Split S2, S3, S4, Clicks, Gallop, Rub, Bruit Murmur: No: Systolic Murmur, Diastolic Murmur Musculoskeletal: Yes: WNL Extremities: Yes: WNL Edema: No Peripheral Pulses WNL: Yes Neurological: Yes: Alert, Oriented Psychiatric: Yes: Alert, Oriented - Other Data Labs, Other Data: CBC, BMP 08/06/20 12:35 08/06/20 12:35 INR, PTT INR 0.98 (0.83-1.09) 08/06/20 12:35 Troponin, BNP 08/06/20 12:35 Troponin I < 0.02 Troponin, BNP 08/06/20 12:35 Troponin I < 0.02 nsr, no ischemia Echo: Report Reviewed Prior Cardiac Procedures: PTCA with Stent Imaging - Results Chest X-ray: Report Reviewed, Image Reviewed EKG: Report Reviewed, Image Reviewed Other: Report Reviewed, Image Reviewed Assessment/Plan 55 year old man with pmh HTN, HLD, DMII, CAD h/o NSTEMI 2014 s/p stents x 5 including LAD with h/o ISR LAD stent, as per pt last stent 2015 in [place], states he 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 Marroquin in Dr. Patel's office and was referred for a stress test that is scheduled for 08/19. Yesterday underwent a colonoscopy. Now admitted with chest pain that started last night. Pt seen and examined today in nad and d/w his on the phone. States he has had pain on and off since last night including while in the ER. described as sharp, substernal radiating to the right of his chest as well as down to his R leg. States he spoke to his GI who did not think it was related to his colonoscopy. denies sob, palpitations, pnd, orthopnea, le edema. no exacerbation with exer tion. no diaphoresis. Chest pain-atypical -but with known CAD h/o [place] multiple prior stents -r/o ACS -no ischemia on ekg -1st set cardiac enzymes wnl -trend serial cardiac enzymes -tele monitoring -cont ASA, statin, metoprolol -ok to cont home prasugrel for now -plan for NST tomorrow to evaluate for ischemia, keep NPO after midnight -echo to evaluate LV function.
[2020-08-06 18:44] VITALS: BMI 25.2
[2020-08-06] MEDS ORDERED: MAGNESIUM 2GM/50ML STERILE WATER IVPB IVPB ONE (20:50)
[2020-08-06] MEDS: HEPARIN NA (PORCINE) 5,000 UNITS/ML 1ML VIAL SQ SCH (21:27)
[2020-08-06] MEDS ORDERED: ATORVASTATIN CA 20 MG TABLET (FP) PO SCH (22:00)
[2020-08-07 06:30] LABS: EOS % 3.4 % (0-4.5); HEMATOCRIT 45.9 % (35.4-49); HEMOGLOBIN 15.6 GM/dL (11.7-16.9); LYMPH % 27.1 % (8-40); MCHC 33.9 g/dl (32.0-35.9); MEAN CELL VOLUME 88.5 fl (80-96); MEAN PLT VOLUME 6.9 fl (7.5-11.1); MONO % 7.9 % (3.8-10.2); NEUT % 60.6 % (42.8-82.8); PLATELET COUNT 322 K/MM3 (134-434); RBC 5.19 M/mm3 (4.00-5.60); RDW 14.8 % (11.9-15.9); WHITE BLOOD COUNT 8.5 K/mm3 (4.0-10.0)
[2020-08-07 06:51] LABS: ALBUMIN 3.2 g/dl (3.4-5.0); ALK PHOS 86 U/L (45-117); ANION GAP 7 MMOL/L (8-16); BILIRUBIN,TOTAL 0.3 mg/dL (0.2-1); BLOOD UREA NITROGEN 13.6 mg/dL (7-18); CALCIUM 8.7 mg/dL (8.5-10.1); CHLORIDE 105 mmol/L (98-107); CHOLESTEROL 198 mg/dL (50-200); CO2 25 mmol/L (21-32); CREATININE 0.8 mg/dL (0.55-1.3); GLUCOSE,RANDOM 250 mg/dL (74-106); HDL CHOLESTEROL 43 mg/dL (40-60); LDL CHOLESTEROL (ONLY SJRH) 123 mg/dL (5-100); MAGNESIUM 1.8 mg/dL (1.8-2.4); POTASSIUM 4.2 mmol/L (3.5-5.1); SGOT/AST 10 U/L (15-37); SGPT/ALT 21 U/L (13-61); SODIUM 137 mmol/L (136-145); TOT PROT 6.7 g/dl (6.4-8.2); TRIGLYCERIDES 206 mg/dL (0-150)
[2020-08-07] MEDS ORDERED: REGADENOSON 0.4 MG/5 ML PRE-FILLED SYRINGE IVPUSH ONE ×2 (09:41→10:15)
[2020-08-07] MEDS ORDERED: ASPIRIN 81 MG CHEWABLE TABLETS PO SCH (10:00)
[2020-08-07] MEDS ORDERED: PRASUGREL HCL 10 MG TAB PO SCH (10:00)
[2020-08-07] MEDS ORDERED: PANTOPRAZOLE 40 MG TABLET PO SCH (10:00)
[2020-08-07] MEDS ORDERED: LISINOPRIL 10 MG TABLET (FP) PO SCH (10:00)
[2020-08-07] MEDS ORDERED: ESCITALOPRAM OXALATE 10 MG TABLET PO SCH (10:00)
[2020-08-07] MEDS ORDERED: INSULIN (LEVEMIR) 100 UNITS/ML UNITS SQ ONE (10:43)
--- NOTE | 2020-08-07 10:43 | HP ---
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 Marroquin in Dr. Patel's office and was referred for a stress test that is scheduled for 08/19. Underwent colonoscopy on 08/05/20. Currently in Cardiology for stress test + Echo- If negative, would discharge pt. Denies any chest pain. History Source: Patient Limitations to Obtaining History: No Limitations - Past Medical History Cardiovascular: Yes: CAD, HTN, Hyperlipdemia, [place] Endocrine: Yes: Diabetes Mellitus - Past Surgical History Past Surgical History: Yes: Stent - Smoking History Smoking history: Current every day smoker Have you smoked in the past 12 months: No Aproximately how many cigarettes per day: 20 If you are a former smoker, when did you quit?: this week - Alcohol/Substance Use Hx Alcohol Use: No Home Medications - Allergies Allergies/Adverse Reactions: Allergies Allergy/AdvReac Type Severity Reaction Status Date / Time No Known Allergies Allergy Verified 08/06/20 12:22 - Home Medications Home Medications: Ambulatory Orders Aspirin [ASA -] 81 mg PO DAILY 09/07/14 Cyclobenzaprine HCl 5 mg PO TID PRN 04/23/20 Escitalopram Oxalate [Lexapro -] 5 mg PO DAILY #30 tablet 04/23/20 Insulin Glargine/Lixisenatide [Soliqua 100 Unit-33 Mcg/ml Pen] 40 unit SQ DAILY 04/23/20 Lisinopril 10 mg PO DAILY 04/23/20 Metoprolol Succinate 100 mg PO DAILY 04/23/20 Omeprazole 40 mg PO DAILY 04/23/20 Prasugrel HCl 10 mg PO DAILY 04/23/20 Family Medical History Family History: Denies Review of Systems - Review of Systems Constitutional: reports: No Symptoms Eyes: reports: No Symptoms HENT: reports: No Symptoms Neck: reports: No Symptoms Cardiovascular: reports: Chest Pain Respiratory: reports: No Symptoms Gastrointestinal: reports: No Symptoms Genitourinary: reports: No Symptoms Breasts: reports: No Symptoms Reported Musculoskeletal: reports: No Symptoms Integumentary: reports: No Symptoms Neurological: reports: No Symptoms Endocrine: reports: No Symptoms Hematology/Lymphatic: reports: No Symptoms Psychiatric: reports: No Symptoms Physical Examination Vital Signs: Vital Signs Temperature 98.0 F 08/07/20 07:30 Pulse Rate 82 08/07/20 07:30 Respiratory Rate 18 08/07/20 07:30 Blood Pressure 124/74 08/07/20 07:30 O2 Sat by Pulse Oximetry (%) 99 08/07/20 07:30 Constitutional: Yes: Well Nourished, No Distress, Calm Cardiovascular: Yes: Regular Rate and Rhythm Respiratory: Yes: Regular, CTA Bilaterally Gastrointestinal: Yes: Normal Bowel Sounds, Soft Musculoskeletal: Yes: WNL Extremities: Yes: WNL Edema: No Peripheral Pulses WNL: Yes Neurological: Yes: Alert, Oriented Psychiatric: Yes: Alert, Oriented Labs: CBC, BMP 08/07/20 05:59 08/07/20 05:59 Problem List - Problems (1) CAD (coronary artery disease) Assessment/Plan: -Continue ASA,BB,Statin Problems reviewed: Yes Code(s): I25.10 - ATHSCL HEART DISEASE OF [place] CORONARY ARTERY W/O ANG PCTRS (2) Chest pain Assessment/Plan: -Seen by Cardiology -NST -Echo -Trops x 3 negative -EKG-unremarkable -Continue ASA, statin, BB Problems reviewed: Yes Code(s): R07.9 - CHEST PAIN, UNSPECIFIED (3) Acute coronary syndrome Problems reviewed: Yes Code(s): I24.9 - ACUTE ISCHEMIC HEART DISEASE, UNSPECIFIED Assessment/Plan See problem list
[2020-08-07] MEDS ORDERED: INSULIN SLIDING SCALE (NOVOLOG) 1 VIAL SQ SCH (11:00)
--- NOTE | 2020-08-07 12:16 | PN ---
Progress Note, Physician History of Present Illness: pt seen and examined today in [facility]. no overnight events. no new complaints. - Current Medication List Current Medications: Active Medications Aspirin (Asa -) 81 mg PO DAILY [facility] Atorvastatin Calcium (Lipitor -) 20 mg PO HS [facility] Last Admin: 08/06/20 21:26 Dose: 20 mg Documented by: Cyclobenzaprine HCl (Cyclobenzaprine Hcl) 5 mg PO TID PRN PRN Reason: MUSCLE SPASMS Escitalopram Oxalate (Lexapro -) 5 mg PO DAILY [facility] Heparin Sodium (Porcine) (Heparin -) 5,000 unit SQ BID [facility] Last Admin: 08/06/20 21:27 Dose: 5,000 unit Documented by: Insulin Aspart (Novolog Vial Sliding Scale -) 1 vial SQ TIDAC [facility]; Protocol Lisinopril (Prinivil) 10 mg PO DAILY [facility] Metformin HCl (Glucophage -) 1,000 mg PO BIDAC [facility] Metoprolol Succinate (Toprol Xl -) 100 mg PO DAILY [facility] Pantoprazole Sodium (Protonix -) 40 mg PO DAILY [facility] Prasugrel (Effient -) 10 mg PO DAILY [facility] Sitagliptin Phosphate (Januvia -) 100 mg PO DAILY@0700 [facility] - Objective Vital Signs: Vital Signs Temperature 98.0 F 08/07/20 07:30 Pulse Rate 82 08/07/20 07:30 Respiratory Rate 18 08/07/20 07:30 Blood Pressure 124/74 08/07/20 07:30 O2 Sat by Pulse Oximetry (%) 99 08/07/20 07:30 Constitutional: Yes: No Distress, Calm Eyes: Yes: Conjunctiva Clear, EOM Intact, PERRL HENT: Yes: Atraumatic, Normocephalic Neck: Yes: Supple, Trachea Midline Cardiovascular: Yes: Regular Rate and Rhythm, S1, S2. No: Bradycardia, Tachycardia, Pulse Irregular, Bruit, JVD, Gallop, Murmur, Rub, S3, S4, Vari cosities Respiratory: Yes: Regular, CTA Bilaterally. No: Rales, Rhonchi, SOB, Wheezes Gastrointestinal: Yes: Normal Bowel Sounds, Soft. No: Distention, Tenderness ...Rectal Exam: Yes: WNL Genitourinary: Yes: WNL Breast(s): Yes: WNL Musculoskeletal: Yes: WNL Extremities: Yes: WNL Edema: No Peripheral Pulses WNL: Yes Peripheral Pulses: Left Doralis Pedis: 2+, Right Dorsalis Pedis: 2+ Neurological: Yes: Alert, Oriented Psychiatric: Yes: Alert, Oriented Labs: CBC, BMP 08/07/20 05:59 08/07/20 05:59 INR, PTT INR 0.98 (0.83-1.09) 08/06/20 12:35 - ....Imaging Chest X-ray: Report Reviewed, Image Reviewed EKG: Report Reviewed, Image Reviewed Other: Report Reviewed, Image Reviewed (tele-no sig arrhythmias) Assessment/Plan 55 year old man with pmh HTN, HLD, DMII, CAD h/o NSTEMI 2014 s/p stents x 5 including LAD with h/o ISR LAD stent, as per pt last stent 2014 in [place], states 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 Marroquin in Dr. Patel's office and was referred for a stress test that is scheduled for 08/19. Yesterday underwent a colonoscopy. Now admitted with chest pain that started last night. Pt seen and examined today in nad and d/w his on the phone. States he has had pain on and off since last night including while in the ER. described as sharp, substernal radiating to the right of his chest as well as do wn to his R leg. States he spoke to his GI who did not think it was related to his colonoscopy. denies sob, palpitations, pnd, orthopnea, le edema. no exacerbation with exertion. no diaphoresis. Chest pain-atypical -but with known CAD h/o [place] multiple prior stents -cardiac enzymes wnl -no ischemia on ekg -no events on tele -cont ASA, statin, metoprolol -ok to cont home prasugrel for now -NST done showed no ischemia -echo shows low normal LVEF -no additional inpatient cardiac work up is needed at this time, pt is acceptable for discharge from a cardiac standpoint -[facility] he establish routine outpatient cardiac care please call with questions.
[2020-08-07] MEDS ORDERED: PT OWN MED DRAWER 7, Y5N ONE ×2 (12:30→13:21)
--- NOTE | 2020-08-07 12:38 | EKG ---
Test Reason : Blood Pressure : / mmHG Vent. Rate : 081 BPM Atrial Rate : 081 BPM P-R Int : 152 ms QRS Dur : 094 ms QT Int : 372 ms P-R-T Axes : 064 053 066 degrees QTc Int : 432 ms NORMAL SINUS RHYTHM POSSIBLE LEFT ATRIAL ENLARGEMENT BORDERLINE ECG WHEN COMPARED WITH ECG OF 21-APR-2020 22:20, NO SIGNIFICANT CHANGE WAS FOUND Confirmed by DILMA MCCULLOUGH MD ([id number]) on 08/07/2020 12:37:30 PM Referred By: Confirmed By:DILMA MCCULLOUGH MD
--- NOTE | 2020-08-07 12:52 | ECHO ---
Name: KARON, EMAD Exam:Adult Echocardiogram Study Date: 08/07/2020 08:00 AM Age: 55 yrs Reason For Study: LV Function Height: 66 in Weight: 156 lb BSA: 1.8 m2 MMode/2D Measurements & Calculations IVSd: 0.87 cm Ao root diam: 3.0 cm LVIDd: 4.0 cm LA dimension: 2.5 cm LVIDs: 2.9 cm LVPWd: 0.94 cm EDV(Teich): 70.1 ml LVOT diam: 2.0 cm ESV(Teich): 33.1 ml LAV (MOD-bp): 36.6 ml Doppler Measurements & Calculations MV E max morro: 54.5 cm/sec Ao V2 max: 128.2 cm/sec MV A max morro: 84.5 cm/sec Ao max P.6 mmHg MV E/A: 0.65 MV dec time: 0.17 sec OMID(V,D): 1.9 cm2 LV V1 max P.4 mmHg PA V2 max: 95.0 cm/sec LV V1 max: 78.1 cm/sec PA max P.6 mmHg Med Peak E' Morro: 4.8 cm/sec Med E/e': 11.4 Lat Peak E' Morro: 9.4 cm/sec Lat E/e': 5.8 Procedure A complete two-dimensional transthoracic echocardiogram was performed (2D, M-mode, Doppler and color flow Doppler). Left Ventricle The left ventricle is normal in size. Left ventricular systolic function is low normal. Ejection Frac tion = 50-55%. No regional wall motion abnormalities noted. Right Ventricle The right ventricle is normal in size and function. Atria Normal left and right atrial size and function. Mitral Valve There is no mitral regurgitation noted. Tricuspid Valve There is trace tricuspid regurgitation. There was insufficient TR detected to calculate RV systolic p ressure. Aortic Valve The aortic valve is trileaflet. No hemodynamically significant valvular aortic stenosis. No aortic regurgitation is present. Pulmonic Valve There is no pulmonic valvular regurgitation. Great Vessels The aortic root is normal size. Pericardium/Pleura There is no pericardial effusion. Interpretation Summary Left ventricular systolic function is low normal. The right ventricle is normal in size and function. There is trace tricuspid regurgitation. MD Vito Pittman 08/07/2020 12:51 PM
[2020-08-07] MEDS: HEPARIN NA (PORCINE) 5,000 UNITS/ML 1ML VIAL SQ SCH (13:19)
[2020-08-07 14:17] VITALS: BP 122/73; PULSE 80; TEMP 98.3
[2020-08-07] MEDS ORDERED: metFORMIN HCL 500 MG TABLET (FP) PO SCH (16:30)
== END 2020-08-07 17:00 | disposition home or self-care (01) | DRG 313 ==
LOC: JER 12:13 → JERBED 13:55 → J4S 18:39
PROVIDERS: ADMIT Family Medicine; ATTEND Family Medicine
DX: R07.89 Other chest pain (principal); I10 Essential (primary) hypertension; E78.5 Hyperlipidemia, unspecified; E11.9 Type 2 diabetes mellitus without complications; I25.10 Atherosclerotic heart disease of native coronary artery without angina pectoris; Z95.5 Presence of coronary angioplasty implant and graft; I25.2 Old myocardial infarction; F17.210 Nicotine dependence, cigarettes, uncomplicated
CPT/HCPCS: 36415; 71046-TC-FY; 78452-TC; 80053; 80061; 82550; 83036; 83721; 83735; 84443; 84484; 85025; 85610; 85730; 93005; 93010; 93017; 93306-TC; 99285-25; A9502; J1644; J2785; U0003

== ENCOUNTER 2020-08-25 04:39 | Inpatient (IN) | payer BC ==
--- OUTSIDE RECORDS SUMMARY | 2020-08-25 04:43 | XMS ---
:1965 Author Organization [facility] Support Name Relationship Address Phone [employer] Unavailable [address] [address] ASHISH Unavailable [address] [place] [address] MASON BRANTLEY [address] [facility] [place] [address] MASON BRANTLEY Spouse [address] [place] [place] [address] Re-disclosure Warning The records that you are about to access may contain information from federally- assisted alcohol or drug abuse programs. If such information is present, then the following federally mandated warning applies: This information has been disclosed to you from records protected by federal confidentiality rules (42 CFR part 2). The federal rules prohibit you from making any further disclosure of this information unless further disclosure is expressly permitted by the written consent of the person to whom it pertains or as otherwise permitted by 42 CFR part 2. A general authorization for the release of medical or other information is NOT sufficient for this purpose. The Federal rules restrict any use of the information to criminally investigate or prosecute any alcohol or drug abuse patient.The records that you are about to access may contain highly sensitive health information, the redisclosure of which is protected by Article 27-F of the [facility] Public Health law. If you continue you may haveaccess to information: Regarding HIV / AIDS; Provided by facilities licensed or operated by the [facility] Office of Mental Health; or Provided by the [facility] Office for People With Developmental Disabilities. If such information is present, then the following [facility] mandated warning applies: This information has been disclosed to you from confidential records which are protected by state law. State law prohibits you from making any further disclosure of this information without the specific written consent of the person to whom it pertains, or as otherwise permitted by law. Any unauthorized further disclosure in violation of state law may result in a fine or custodial sentence or both. A general authorization for the release of medical or other information is NOT sufficient authorization for further disclosure. Insurance Providers Payer name Policy type / Policy ID Covered Covered republican's Policy Plan Coverage type republican ID relationship to [place] Information en[employer] BC PPO [id number] OT [id number] BC PPO [id number] OT [id number] BC PPO [id number] OT [id number] Results ID Date Data Source [id number] 08/20/2020 12:55:00 PM EDT [facility] Name Value Range Interpretation Description Data Sup porting Code Source(s) Document(s ) SARS [facility] coronavirus 2 RNA This lab was ordered by [facility] and reported by [facility]. ID Date Data Source [id number] 08/06/2020 03:22:00 PM EDT [facility] Name Value Range Interpretation Description Data Sup porting Code Source(s) Document(s ) SARS [facility] coronavirus 2 RNA This lab was ordered by [facility] and reported by [facility]. ID Date Data Source [id number] 07/31/2020 12:00:00 AM EDT [facility] Name Value Range Interpretation Code Description Data Arlene rce(s) Supporting Document(s ) SARS-CoV-2 [facility] BY PCR This lab was ordered by [facility] and reported by [facility]. ID Date Data Source [id number] 07/21/2020 10:00:00 PM EDT [facility] Name Value Range Interpretation Code Description Data Arlene rce(s) Supporting Document(s ) SARS-CoV-2 [facility] BY PCR This lab was ordered by [facility] and reported by [facility]. ID Date Data Source [id number] 04/21/2020 10:30:00 PM EDT [facility] Name Value Range Interpretation Description Data Sup porting Code Source(s) Document(s ) SARS [facility] CORONAVIRUS 2 RNA This lab was ordered by [facility] and reported by [facility]. Procedure
[2020-08-25] MEDS ORDERED: ERTAPENEM SODIUM 1 GM in SODIUM CHLORIDE 50 ML IVPB ONE (07:00)
[2020-08-25] MEDS ORDERED: ALVIMOPAN 12 MG CAP PO ONE ×2 (07:14→07:15)
[2020-08-25] MEDS ORDERED: ERTAPENEM SODIUM 1 GM VIAL ONE (07:15)
[2020-08-25] MEDS ORDERED: ROCURONIUM BROMIDE 50 MG/5 ML SYRINGE ONE ×2 (07:17→10:31)
[2020-08-25] MEDS ORDERED: DEXAMETHASONE SOD PHOSPHATE 4 MG/1 ML VIAL ONE (07:17)
[2020-08-25] MEDS ORDERED: PROPOFOL 20 ML ONE ×2 (07:17→12:38)
[2020-08-25] MEDS ORDERED: LIDOCAINE HCL/PF 2% SDV 5ML VIAL ONE (07:17)
[2020-08-25] MEDS ORDERED: fentaNYL CITRATE 250 MCG/5 ML VIAL ONE (07:18)
[2020-08-25] MEDS ORDERED: DEXAMETHASONE SOD PHOSPHATE/PF 10 MG/ML SDV ONE (07:44)
[2020-08-25] MEDS ORDERED: MIDAZOLAM HCL 2 MG/2 ML SINGLE DOSE VIAL ONE ×2 (07:44)
--- NOTE | 2020-08-25 08:05 | HP ---
History & Physical Update - History History: No Change - Physical Physical: No Change - Assessment Assessment: No Change - Plan Plan: No Change
[2020-08-25] MEDS ORDERED: ERTAPENEM SODIUM 1 GM VIAL IVPB ONE (08:22)
[2020-08-25] MEDS ORDERED: HYDROmorphone HCl 2 MG/ML VIAL ONE (09:01)
[2020-08-25] MEDS ORDERED: DESFLURANE GAS 240 ML BOTTLE IH ONE (10:06)
[2020-08-25] MEDS ORDERED: ONDANSETRON 4 MG/2 ML VIAL IVPUSH PRN (10:18)
[2020-08-25] MEDS ORDERED: oxyCODONE HCL 5 MG TABLET PO PRN ×2 (10:19)
[2020-08-25] MEDS ORDERED: ACETAMINOPHEN 325 MG TABLET (FP) PO SCH (10:30)
[2020-08-25] MEDS ORDERED: LACTATED RINGERS SOLUTION 1,000 ML IV SCH (10:30)
[2020-08-25] MEDS ORDERED: METOPROLOL TARTRATE 5 MG/5 ML VIAL ONE (10:58)
[2020-08-25] MEDS ORDERED: INDOCYANINE GREEN 25 MG/10 ML VIAL IVPUSH ONE (11:30)
[2020-08-25] MEDS ORDERED: GLYCOPYRROLATE 0.2 MG/1 ML VIAL ONE (12:53)
[2020-08-25] MEDS ORDERED: NEOSTIGMINE METHYLSULFATE 0.5 MG/ML - 10 ML MDV ONE (12:53)
[2020-08-25] MEDS ORDERED: ACETAMINOPHEN INJECTION 100 ML IVPB ONE (13:10)
[2020-08-25] MEDS ORDERED: ACETAMINOPHEN 1000 MG/100 ML VIAL (NON FORMULARY) IVPB PRN (13:45)
--- NOTE | 2020-08-25 13:51 | OP ---
Operative Note - Note: Operative Date: 08/25/20 Pre-Operative Diagnosis: Cecal mass Operation: Robotic right hemicolectomy Post-Operative Diagnosis: Same as Pre-op Surgeon: Spencer Cordova Alarm Signaler: Jane Harrison Anesthesia: General Specimens Removed: right colon Estimated Blood Loss (mls): 50 Operative Report Dictated: Yes
--- NOTE | 2020-08-25 14:07 | SURG ---
Surgery Brewery Worker Note Brewery Worker: Jane Harrison PA-C Date of Service: 08/25/20 Diagnosis: Cecal mass Procedure: Robotic right hemicolectomy I was present for the entirety of the operative procedure. For further detail, please refer to operative report. Visit type - Case Type Case Type: Scheduled - Emergency Emergency Visit: No - New patient This patient is new to me today: Yes Date on this admission: 08/25/20
[2020-08-25] MEDS: INSULIN SLIDING SCALE (NOVOLOG) 1 VIAL SQ SCH ×2 (16:48→23:02)
--- NOTE | 2020-08-25 22:50 | PN ---
Physical Exam: SUBJECTIVE: Patient seen and examined at bedside, s/p hemicolectomy for cecal mass. Denies passing gas, endorses pain at incision sites. PCP Dr. Lazarus Patel. OBJECTIVE: Vital Signs Period Temp Pulse Resp BP Sys/Rodas Pulse Ox Last 24 Hr 97.8 F-98.5 F 83-94 16-20 103-126/56-71 99-100 GENERAL: The patient is awake, alert, and fully oriented, in no acute distress. HEAD: Normal with no signs of trauma. EYES: PERRL, extraocular movements intact, sclera anicteric, conjunctiva clear. No ptosis. ENT: Ears normal, nares patent, oropharynx clear without exudates, moist mucous membranes. NECK: Trachea midline, full range of motion, supple. LUNGS: CTAB, no crackles or wheezing HEART: S1, S2+, RRR ABDOMEN: Grossly soft, pain at incision sites, decreased BS EXTREMITIES: 2+ pulses, warm, well-perfused, no edema. NEUROLOGICAL: Cranial nerves II through XII grossly intact. Normal speech, gait not observed. PSYCH: Normal mood, normal affect. SKIN: Warm, dry, normal turgor, no rashes or lesions noted Laboratory Results - last 24 hr 08/25/20 08/25/20 08/25/20 06:17 07:11 16:45 POC Glucometer 192 245 Blood Type B NEGATIVE Antibody Screen Negative Active Medications Generic Name Dose Route Start Last Admin Trade Name Freq PRN Reason Stop Dose Admin Acetaminophen 1,000 mg 08/25/20 13:45 Ofirmev Injection - IVPB 08/26/20 13:46 Q6H PRN PAIN LEVEL 6-10 Alvimopan 12 mg 08/25/20 22:00 Entereg Capsule (Restricted) - PO 09/01/20 10:01 BID [facility] Aspirin 81 mg 08/26/20 10:00 Asa - PO DAILY [facility] Fentanyl 50 mcg 08/25/20 10:18 Sublimaze Injection - IVPUSH [id number] PRN PAIN-PACU ORDER X 4 DOSES ONLY Heparin Sodium (Porcine) 5,000 unit 08/25/20 22:00 Heparin - SQ BID [facility] Lactated Ringer's 1,000 mls @ 125 mls/hr 08/25/20 10:30 08/25/20 15:20 Lactated Ringers Solution IV 0 mls ASDIR [facility] Administration Ertapenem 1 gm/ Sodium 50 mls @ 50 mls/hr 08/26/20 07:00 Chloride IVPB 08/26/20 07:59 ONCE ONE Insulin Aspart 1 vial 08/25/20 16:30 08/25/20 16:48 Novolog Vial Sliding Scale - SQ Not Given ACHS [facility] Protocol Losartan Potassium 25 mg 08/26/20 10:00 Cozaar - PO DAILY [facility] Metoprolol Succinate 100 mg 08/26/20 10:00 Toprol Xl - PO DAILY [facility] Ondansetron HCl 4 mg 08/25/20 10:18 Zofran Injection IVPUSH Q6H PRN NAUSEA AND/OR VOMITING Oxycodone HCl 10 mg 08/25/20 22:00 Oxycontin - PO 08/28/20 10:19 BID [facility] Oxycodone HCl 5 mg 08/25/20 10:19 Roxicodone - PO Q3H PRN PAIN LEVEL 1-5 Oxycodone HCl 10 mg 08/25/20 10:19 Roxicodone - PO Q3H PRN PAIN LEVEL 6-10 Prasugrel 10 mg 08/27/20 10:00 Effient - PO DAILY [facility] Ranolazine 1,000 mg 08/26/20 10:00 Ranexa - PO DAILY [facility] Rosuvastatin Calcium 40 mg 08/25/20 22:00 Crestor - PO [facility] Home Medications Medication Instructions Recorded Aspirin [ASA -] 81 mg PO DAILY 09/07/14 Metoprolol Succinate 100 mg PO DAILY 04/23/20 Prasugrel HCl 10 mg PO DAILY 04/23/20 Insulin Sliding Scale [Novolog 1 vial SQ TIDAC units 08/07/20 Vial Sliding Scale -] Omeprazole 40 mg PO DAILY 08/07/20 Ranolazine [Ranolazine ER] 1,000 mg PO DAILY 08/07/20 Glimepiride 2 mg PO DAILY 08/25/20 Insulin Degludec [Tresiba 200 unit SQ DAILY 08/25/20 Flextouch U-200] Losartan Potassium 25 mg PO DAILY 08/25/20 Rosuvastatin [Crestor -] 40 mg PO DAILY 08/25/20 Tadalafil 5 mg PO DAILY 08/25/20 ASSESSMENT/PLAN: 55 M Cecal mass s/p hemicolectomy (laparoscopic) CAD s/p stents HTN HLD T2DM Active smoker Plan: Restart ASA due to stents, statin, Ranolazine BG control with BID basal insulin and ISS to keep FS 140-180 Restart BB in AM Send A1c/lipids/TSH Surgery following DVT ppx: Heparin per surgery team Visit type - Emergency Visit Emergency Visit: Yes ED Registration Date: 08/25/20 Care time: The patient presented to the Emergency Department on the above date and was hospitalized for further evaluation of their emergent condition. - New Patient This patient is new to me today: Yes Date on this admission: 08/25/20 - Critical Care Critical Care patient: No - Discharge Referral Referred to [facility] Med P.C.: No
[2020-08-25] MEDS: oxyCODONE HCL 10 MG SUSTAINED ACTING TABLET PO SCH ×2 (23:01→23:10)
[2020-08-25] MEDS: HEPARIN NA (PORCINE) 5,000 UNITS/ML 1ML VIAL SQ SCH (23:03)
[2020-08-25] MEDS: ALVIMOPAN 12 MG CAP PO SCH (23:05)
[2020-08-25] MEDS: ROSUVASTATIN CA 20 MG TABLET (FP) PO SCH (23:05)
[2020-08-26] MEDS: INSULIN SLIDING SCALE (NOVOLOG) 1 VIAL SQ SCH ×4 (06:08→22:39)
--- NOTE | 2020-08-26 06:52 | OP ---
DATE OF OPERATION: 08/25/2020 PROCEDURE: Robotic-assisted laparoscopic partial right colectomy with intracorporeal anastomosis. PREOPERATIVE DIAGNOSIS: Large cecal mass. POSTOPERATIVE DIAGNOSIS: Large cecal mass. SURGEON: Spencer Cordova MD ROUSTABOUT CREW: BRADY Fields ANESTHESIA: General endotracheal. FINDINGS AND PROCEDURE: This is a 55-year-old male who presents with chronic constipation and on routine colonoscopy was found to have a 4-cm cecal mass close to the appendiceal orifice. Biopsy revealed a tubular adenoma. Due to the incomplete resection of the mass to rule out adenocarcinoma, the patient was referred for surgical resection. Consent was obtained after discussing the risks, benefits, and alternatives to the procedure. Patient was brought to the operating room and placed in supine position. General endotracheal anesthesia was administered. Both arms were tucked to the side. A Pate catheter was inserted. The abdomen was prepped and draped in the usual sterile fashion. Patient had a preoperative TAP block. Using scalpel blade number 15, a 12-mm left subcostal incision was made, and the peritoneal cavity was entered using the Veress needle technique. Pneumoperitoneum was established. An 8-mm port was inserted at the left subcostal incision which was later changed to a 12-mm port. The peritoneal cavity was carefully inspected using the 3D laparoscope and was noted to be free of inadvertent injury. Omental adhesions to the right hepatic gutter were noted. Using three 8-mm ports were inserted 7 cm away from each other in a diagonal line towards the symphysis pubis, and a 5-mm historian research assistant port was inserted postrior to the 2nd and 3rd ports. The patient was then placed in Trendelenburg [id number] position and using the 3-D, 30-degree laparoscope, the target organ was set. The robotic arms were then docked with fenestrated EndoWrist apolinar connected to monopolar cautery inserted at the subcostal port. The fenestrated bipolar was inserted at the 3rd port at the left lower quadrant, and the Prograsp was inserted at the suprapubic port. The undersigned then scrubbed out to commence the console part of the procedure. The small bowel as well as omentum were retracted towards the left upper quadrant to expose the mesocolon. The ileocolic vessel pedicle was identified, and the visceral peritoneum was scored using the EndoWrist apolinar connected to monopolar cautery until the ileocolic artery and vein were exposed. Using blunt and sharp dissection, the retroperitoneum was dissected towards the duodenum. Afterward the ileocolic artery and veins were individually ligated with a hemoclip and reinforced with the vessel sealing device and transected close to its origin from the superior mesenteric artery. After that, the right paracolic gutter was mobilized using the EndoWrist apolinar connected to monopolar cautery towards the hepatic flexure. The ileocolic mesocolon, right branch of the middle colic vessels, and the proximal transverse mesocolon were transected using the vessel sealing device. The transverse colon was then transected to the right of the falciform ligament using the Endo ABDIAS 45 stapler which was fired twice to complete the transection. The omentum was then taken down from the proximal transverse colon toward the hepatic flexure. The small-bowel mesentery was likewise dissected using the vessel sealing device towards the terminal ileum, and about 7 cm of the terminal ileum was transected using the Endo ABDIAS 45, 3.5-mm stapling device. After that, indocyanine green was injected to confirm good vascularity of the segments that were to be anastomosed. Due to the redundancy of the proximal transverse colon about another 5 cm of transverse colon was transected using the Endo ABDIAS stapler. Afterwards a [id number] anastomosis was constructed by applying a stay suture of the antimesenteric border of the terminal ileum and the transverse colon. Enterotomies using the EndoWrist apolinar were done and the Endo ABDIAS 45, 3.5-mm stapling device was fired to create the anastomosis. The common channel was then closed with an inner full-thickness layer of V-Loc 2-0 suture and an outer layer of Lembert V-Loc 2-0 suture. After the anastomosis was completed, the omentum was taken down to cover the anastomosis anteriorly and posteriorly. Afterwards, the instruments were removed and the robotic arms were undocked. The pneumoperitoneum was evacuated. The suprapubic port was enlarged to about 5 cm followed by application of the small size Rafita wound retractor. The specimens were then extracted through the suprapubic incision. The wound was then closed with continuous Vicryl 3-0 suture for the peritoneum and continuous Vicryl 0 suture for the fascia. All the wounds were then closed with subcuticular Biosyn 4-0 sutures reinforced with Dermabond. The patient was successfully extubated and transferred to the post anesthesia care unit in satisfactory condition. Estimated blood loss was about 50 mL. Wound class clean, contaminated. The patient received 1 g of Invanz prior to the start of the procedure. Violet [id number] MTDD
[2020-08-26] MEDS ORDERED: ERTAPENEM SODIUM 1 GM in SODIUM CHLORIDE 50 ML IVPB ONE (07:00)
[2020-08-26] MEDS: ALVIMOPAN 12 MG CAP PO SCH ×3 (07:19→22:54)
--- NOTE | 2020-08-26 07:36 | PN ---
Progress Note, Physician Chief Complaint: POD #1 S/M COLECTOMY AWAKE ALERT FEELS GOOD DENIES FEVER OR CHILLS - Current Medication List Current Medications: Active Medications Acetaminophen (Ofirmev Injection -) 1,000 mg IVPB Q6H PRN PRN Reason: PAIN LEVEL 6-10 Stop: 08/26/20 13:46 Alvimopan (Entereg Capsule (Restricted) -) 12 mg PO BID [facility] Stop: 09/01/20 10:01 Last Admin: 08/25/20 23:05 Dose: 12 mg Documented by: Aspirin (Asa -) 81 mg PO DAILY [facility] Fentanyl (Sublimaze Injection -) 50 mcg IVPUSH [id number] PRN PRN Reason: PAIN-PACU ORDER X 4 DOSES ONLY Heparin Sodium (Porcine) (Heparin -) 5,000 unit SQ BID [facility] Last Admin: 08/25/20 23:03 Dose: 5,000 unit Documented by: Lactated Ringer's (Lactated Ringers Solution) 1,000 mls @ 125 mls/hr IV ASDIR [facility] Last Admin: 08/25/20 15:20 Dose: 0 mls Documented by: Ertapenem 1 gm/ Sodium (Chloride) 50 mls @ 50 mls/hr IVPB ONCE ONE Stop: 08/26/20 07:59 Last Admin: 08/26/20 06:09 Dose: 50 mls/hr Documented by: Insulin Aspart (Novolog Vial Sliding Scale -) 1 vial SQ ACHS [facility]; Protocol Last Admin: 08/26/20 06:08 Dose: 2 units Documented by: Losartan Potassium (Cozaar -) 25 mg PO DAILY [facility] Metoprolol Succinate (Toprol Xl -) 100 mg PO DAILY [facility] Ondansetron HCl (Zofran Injection) 4 mg IVPUSH Q6H PRN PRN Reason: NAUSEA AND/OR VOMITING Oxycodone HCl (Oxycontin -) 10 mg PO BID [facility] Stop: 08/28/20 10:19 Last Admin: 08/25/20 23:10 Dose: 10 mg Documented by: Oxycodone HCl (Roxicodone -) 5 mg PO Q3H PRN PRN Reason: PAIN LEVEL 1-5 Oxycodone HCl (Roxicodone -) 10 mg PO Q3H PRN PRN Reason: PAIN LEVEL 6-10 Prasugrel (Effient -) 10 mg PO DAILY [facility] Ranolazine (Ranexa -) 500 mg PO BID [facility] Rosuvastatin Calcium (Crestor -) 40 mg PO HS [facility] Last Admin: 08/25/20 23:05 Dose: 40 mg Documented by: - Objective Vital Signs: Vital Signs Temperature 98.6 F 08/26/20 05:35 Pulse Rate 86 08/26/20 05:35 Respiratory Rate 18 08/26/20 05:35 Blood Pressure 133/77 08/26/20 05:35 O2 Sat by Pulse Oximetry (%) 96 08/26/20 05:35 Constitutional: Yes: Mild Distress Cardiovascular: Yes: Regular Rate and Rhythm Respiratory: Yes: WNL Gastrointestinal: Yes: Soft, Tenderness (CLEAN WOUND SITE) Genitourinary: Yes: Pate Present Wound/Incision: Yes: Clean/Dry, Open to air Neurological: Yes: WNL ...Motor Strength: WNL Psychiatric: Yes: WNL Problem List - Problems (1) S/P right hemicolectomy Code(s): Z90.49 - ACQUIRED ABSENCE OF OTHER SPECIFIED PARTS OF DIGESTIVE TRACT (2) Cecum mass Code(s): K63.89 - OTHER SPECIFIED DISEASES OF INTESTINE Assessment/Plan POD #1 RIGHT HEMICOLECTOMY TOLERATING WELL MONITORING LABS D/C JACQUELINE OOB TO CHAIR DVT PROPHYLAXIS SURGERY F/U
--- NOTE | 2020-08-26 08:24 | PN ---
Progress Note (short form) - Note Progress Note: Anesthesia postop note 55 y/o M s/p GA and nerve block for robotic hemicolectomy POD#1, vss, aaox3, no complaints, pain fairly well controlled. No anesthesia complications.
[2020-08-26 08:27] LABS: BLOOD UREA NITROGEN 13.5 mg/dL (7-18); CALCIUM 8.2 mg/dL (8.5-10.1); CREATININE 0.7 mg/dL (0.55-1.3)
[2020-08-26 08:29] LABS: BASO % 0.6 % (0-2.0); EOS % 0.1 % (0-4.5); HEMATOCRIT 41.8 % (35.4-49); HEMOGLOBIN 14.1 GM/dL (11.7-16.9); LYMPH % 12.5 % (8-40); MCH 29.8 pg (25.7-33.7); MCHC 33.8 g/dl (32.0-35.9); MEAN CELL VOLUME 88.1 fl (80-96); MEAN PLT VOLUME 7.6 fl (7.5-11.1); MONO % 7.5 % (3.8-10.2); NEUT % 79.3 % (42.8-82.8); PLATELET COUNT 321 K/MM3 (134-434); POTASSIUM 4.1 mmol/L (3.5-5.1); RBC 4.74 M/mm3 (4.00-5.60); RDW 14.6 % (11.9-15.9); WHITE BLOOD COUNT 13.8 K/mm3 (4.0-10.0)
[2020-08-26] MEDS ORDERED: PT OWN MED DRAWER 7, Y5N ONE (09:10)
--- NOTE | 2020-08-26 09:36 | PN ---
Progress Note (short form) - Note Progress Note: POD 1, s/p Robotic right hemicolectomy for Cecal mass Pt seen and examined. Reports no issues overnight. Tolerating clear liquids. Has not been oob yet. Stone in place. Pain controlled with current pain regimen. Denies cp/sob, n/v/d. Vital Signs Temp 98.6 F 08/26/20 05:35 Pulse 86 08/26/20 05:35 Resp 18 08/26/20 05:35 BP 133/77 08/26/20 05:35 Pulse Ox 96 08/26/20 05:35 Intake & Output 08/25/20 08/25/20 08/26/20 11:59 23:59 11:59 Intake Total 2000 600 Output Total 101 978 6715 Balance 1800 0 -1000 Intake: IV 2000 600 Output: Urine 548 828 6123 Stone 400 1000 Estimated Blood Loss 50 Other: Voiding Method Indwelling Catheter Indwelling Catheter Bowel Movement No CBC, BMP 08/26/20 06:51 08/26/20 06:51 Gen: awake,, alert, nad Resp: Unlabored on RA Abdo: soft, nondistended, incisions c/d/i with dermabond in place, no erythema or drainage. Hypoactive bowel sounds, no rebound or guarding. Ext: scds in place and on A/P: 55 y/o M w/ PMHx htn, uncontrolled dm, cad s/p stents x5, cecal mass, now POD 1, s/p Robotic right hemicolectomy for Cecal mass. afebrile, vss labs reviewed, h/h stable -continue clear liquids -IVF: LR @62mls/hr -restart ASA today, Connor to restart mundo -oob as tolerated -remove stone this am, tov -monitor vs -will continue to follow closely -pain control, minimize narcotics d/w attending Dr Cordova
[2020-08-26] MEDS: RANOLAZINE E.R. 500 MG TABLET (FP) PO SCH ×2 (09:41→22:38)
[2020-08-26] MEDS: LOSARTAN POTASSIUM 25 MG TABLET PO SCH (09:41)
[2020-08-26] MEDS: ASPIRIN 81 MG CHEWABLE TABLETS PO SCH (09:41)
[2020-08-26] MEDS: HEPARIN NA (PORCINE) 5,000 UNITS/ML 1ML VIAL SQ SCH ×2 (09:43→21:24)
[2020-08-26] MEDS ORDERED: TADALAFIL 5 MG PO SCH (10:00)
[2020-08-26] MEDS ORDERED: RANOLAZINE E.R. 1,000 MG TABLET (FP) PO SCH (10:00)
[2020-08-26] MEDS: LACTATED RINGERS SOLUTION 1,000 ML IV SCH (12:22)
[2020-08-26] MEDS: PANTOPRAZOLE SODIUM 40 MG VIAL IVPUSH SCH (15:51)
--- NOTE | 2020-08-26 17:03 | PN ---
Progress Note, Physician Chief Complaint: s/p robotic right hemicolectomy POD #1 History of Present Illness: c/o nausea but no vomiting on clear liquids pain noted at suprapubic incision - Current Medication List Current Medications: Active Medications Acetaminophen (Ofirmev Injection -) 1,000 mg IVPB Q6H PRN PRN Reason: PAIN LEVEL 6-10 Stop: 08/27/20 14:57 Alvimopan (Entereg Capsule (Restricted) -) 12 mg PO BID [facility] Stop: 09/01/20 10:01 Last Admin: 08/26/20 09:43 Dose: 12 mg Documented by: Aspirin (Asa -) 81 mg PO DAILY [facility] Last Admin: 08/26/20 09:41 Dose: 81 mg Documented by: Heparin Sodium (Porcine) (Heparin -) 5,000 unit SQ BID [facility] Last Admin: 08/26/20 09:43 Dose: 5,000 unit Documented by: Lactated Ringer's (Lactated Ringers Solution) 1,000 mls @ 62 mls/hr IV ASDIR [facility] Last Admin: 08/26/20 12:22 Dose: Not Given Documented by: Insulin Aspart (Novolog Vial Sliding Scale -) 1 vial SQ [facility]; Protocol Last Admin: 08/26/20 11:55 Dose: Not Given Documented by: Losartan Potassium (Cozaar -) 25 mg PO DAILY [facility] Last Admin: 08/26/20 09:41 Dose: 25 mg Documented by: Metoprolol Succinate (Toprol Xl -) 100 mg PO DAILY [facility] Last Admin: 08/26/20 09:41 Dose: 100 mg Documented by: Ondansetron HCl (Zofran Injection) 4 mg IVPUSH Q6H PRN PRN Reason: NAUSEA AND/OR VOMITING Last Admin: 08/26/20 09:48 Dose: 4 mg Documented by: Pantoprazole Sodium (Protonix Iv) 40 mg IVPUSH DAILY [facility] Prasugrel (Effient -) 10 mg PO DAILY [facility] Ranolazine (Ranexa -) 500 mg PO BID [facility] Last Admin: 08/26/20 09:41 Dose: 500 mg Documented by: Rosuvastatin Calcium (Crestor -) 40 mg PO HS [facility] Last Admin: 08/25/20 23:05 Dose: 40 mg Documented by: - Objective Vital Signs: Vital Signs Temperature 99.0 F 08/26/20 14:49 Pulse Rate 87 09/29/20 14:49 Respiratory Rate 18 08/26/20 14:49 Blood Pressure 124/80 08/26/20 14:49 O2 Sat by Pulse Oximetry (%) 97 08/26/20 14:49 Constitutional: Yes: No Distress Eyes: Yes: Conjunctiva Clear HENT: Yes: Normocephalic Neck: Yes: Supple Cardiovascular: Yes: Regular Rate and Rhythm Respiratory: Yes: CTA Bilaterally Gastrointestinal: Yes: Soft, Distention (mild), Other (port sites intact) Wound/Incision: Yes: Clean/Dry Labs: CBC, BMP 08/26/20 06:51 08/26/20 06:51 Problem List - Problems (1) Cecum mass Assessment/Plan: mild post-op ileus hold clear liquids if patient remains nauseated restrictive fluid therapy OOB, IS, GI, & DVT prophylaxis Code(s): K63.89 - OTHER SPECIFIED DISEASES OF INTESTINE
[2020-08-26] MEDS: ACETAMINOPHEN 1000 MG/100 ML VIAL (NON FORMULARY) IVPB PRN ×2 (17:52→23:50)
[2020-08-26] MEDS: ROSUVASTATIN CA 20 MG TABLET (FP) PO SCH (22:38)
[2020-08-27] MEDS: INSULIN SLIDING SCALE (NOVOLOG) 1 VIAL SQ SCH ×4 (06:04→21:42)
--- NOTE | 2020-08-27 07:56 | PN ---
Progress Note, Physician Chief Complaint: AWAKE ALERT POD#2 C/O SOME CHEST DISCOMFORT AND PAIN ATYPICAL - Current Medication List Current Medications: Active Medications Acetaminophen (Ofirmev Injection -) 1,000 mg IVPB Q6H PRN PRN Reason: PAIN LEVEL 6-10 Stop: 08/27/20 14:57 Last Admin: 08/26/20 23:50 Dose: 1,000 mg Documented by: Alvimopan (Entereg Capsule (Restricted) -) 12 mg PO BID [facility] Stop: 09/01/20 10:01 Last Admin: 08/26/20 22:54 Dose: 12 mg Documented by: Aspirin (Asa -) 81 mg PO DAILY [facility] Last Admin: 08/26/20 09:41 Dose: 81 mg Documented by: Heparin Sodium (Porcine) (Heparin -) 5,000 unit SQ BID [facility] Last Admin: 08/26/20 21:24 Dose: 5,000 unit Documented by: Lactated Ringer's (Lactated Ringers Solution) 1,000 mls @ 62 mls/hr IV ASDIR [facility] Last Admin: 08/26/20 12:22 Dose: Not Given Documented by: Insulin Aspart (Novolog Vial Sliding Scale -) 1 vial SQ [facility]; Protocol Last Admin: 08/27/20 06:04 Dose: Not Given Documented by: Losartan Potassium (Cozaar -) 25 mg PO DAILY [facility] Last Admin: 08/26/20 09:41 Dose: 25 mg Documented by: Metoprolol Succinate (Toprol Xl -) 100 mg PO DAILY [facility] Last Admin: 08/26/20 09:41 Dose: 100 mg Documented by: Ondansetron HCl (Zofran Injection) 4 mg IVPUSH Q6H PRN PRN Reason: NAUSEA AND/OR VOMITING Last Admin: 08/26/20 09:48 Dose: 4 mg Documented by: Pantoprazole Sodium (Protonix Iv) 40 mg IVPUSH DAILY [facility] Last Admin: 08/26/20 15:51 Dose: 40 mg Documented by: Prasugrel (Effient -) 10 mg PO DAILY [facility] Ranolazine (Ranexa -) 500 mg PO BID [facility] Last Admin: 08/26/20 22:38 Dose: 500 mg Documented by: Rosuvastatin Calcium (Crestor -) 40 mg PO HS [facility] Last Admin: 08/26/20 22:38 Dose: 40 mg Documented by: - Objective Vital Signs: Vital Signs Temperature 98.7 F 08/27/20 06:25 Pulse Rate 82 08/27/20 06:25 Respiratory Rate 18 08/27/20 06:25 Blood Pressure 132/74 08/27/20 06:25 O2 Sat by Pulse Oximetry (%) 99 08/27/20 06:25 Constitutional: Yes: Mild Distress Cardiovascular: Yes: Regular Rate and Rhythm Respiratory: Yes: CTA Bilaterally Gastrointestinal: Yes: Soft Genitourinary: Yes: WNL Musculoskeletal: Yes: Back Pain Edema: No Neurological: Yes: WNL ...Motor Strength: WNL Psychiatric: Yes: WNL Labs: CBC, BMP 08/26/20 06:51 08/26/20 06:51 Problem List - Problems (1) S/P right hemicolectomy Code(s): Z90.49 - ACQUIRED ABSENCE OF OTHER SPECIFIED PARTS OF DIGESTIVE TRACT (2) Cecum mass Code(s): K63.89 - OTHER SPECIFIED DISEASES OF INTESTINE Assessment/Plan CHECK CXR EKG TROPONINS STAT PAIN MEDS TRANSITION DIET SLOWLY SURGERY F/U APPRECIATED LABS REVIEWED INCENTIVE SPIROMETRY OOB TO CHAIR
[2020-08-27 08:28] LABS: BASO % 0.5 % (0-2.0); EOS % 0.9 % (0-4.5); HEMATOCRIT 40.7 % (35.4-49); HEMOGLOBIN 13.8 GM/dL (11.7-16.9); LYMPH % 13.5 % (8-40); MEAN CELL VOLUME 88.2 fl (80-96); MEAN PLT VOLUME 7.4 fl (7.5-11.1); MONO % 7.1 % (3.8-10.2); PLATELET COUNT 288 K/MM3 (134-434); RBC 4.61 M/mm3 (4.00-5.60); RDW 14.6 % (11.9-15.9); WHITE BLOOD COUNT 11.5 K/mm3 (4.0-10.0)
--- NOTE | 2020-08-27 08:44 | PN ---
Progress Note (short form) - Note Progress Note: POD 1, s/p Robotic right hemicolectomy for Cecal mass SURGERY Pt seen and examined. Reports no issues overnight. Tolerating clear liquids. Pt urinating well. Pain controlled with current pain regimen. Denies cp/sob, n/v/d. Pt states he had BM yesterday. Last Vital Signs Temp Pulse Resp BP Pulse Ox 98.7 F 82 18 132/74 99 08/27/20 06:25 08/27/20 06:25 08/27/20 06:25 08/27/20 06:25 08/27/20 06:25 Gen: awake,, alert, nad Resp: Unlabored on RA Abdo: soft, nondistended, incisions c/d/i with dermabond in place, no erythema or drainage. no rebound or guarding. Ext: scds in place and on A/P: 55 y/o M w/ PMHx htn, uncontrolled dm, cad s/p stents x5, cecal mass, now POD 2, s/p Robotic right hemicolectomy for Cecal mass. afebrile, vss -will consider regular diet for lunch -IVF: LR @62mls/hr - Connor to restart today -oob as tolerated -monitor vs -will continue to follow closely -pain control, minimize narcotics d/w attending Dr Cordova
[2020-08-27 09:03] LABS: BLOOD UREA NITROGEN 8.8 mg/dL (7-18); CALCIUM 8.5 mg/dL (8.5-10.1); CREATININE 0.7 mg/dL (0.55-1.3)
[2020-08-27 09:06] LABS: ALBUMIN 2.8 g/dl (3.4-5.0); ALK PHOS 71 U/L (45-117); ANION GAP 7 MMOL/L (8-16); BILIRUBIN,TOTAL 0.6 mg/dL (0.2-1); CALCIUM 8.5 mg/dL (8.5-10.1); CHLORIDE 103 mmol/L (98-107); CO2 26 mmol/L (21-32); CREATININE 0.6 mg/dL (0.55-1.3); GLUCOSE,RANDOM 148 mg/dL (74-106); MAGNESIUM 1.8 mg/dL (1.8-2.4); POTASSIUM 4.1 mmol/L (3.5-5.1); SGOT/AST 20 U/L (15-37); SGPT/ALT 17 U/L (13-61); SODIUM 137 mmol/L (136-145); TOT PROT 5.8 g/dl (6.4-8.2)
[2020-08-27] MEDS ORDERED: PT OWN MED DRAWER 7, Y5N ONE (09:27)
[2020-08-27] MEDS: ACETAMINOPHEN 1000 MG/100 ML VIAL (NON FORMULARY) IVPB PRN (09:39)
[2020-08-27] MEDS: PANTOPRAZOLE SODIUM 40 MG VIAL IVPUSH SCH (09:39)
[2020-08-27] MEDS: HEPARIN NA (PORCINE) 5,000 UNITS/ML 1ML VIAL SQ SCH ×2 (09:39→21:36)
[2020-08-27] MEDS: ALVIMOPAN 12 MG CAP PO SCH ×2 (09:40→21:36)
[2020-08-27] MEDS: LACTATED RINGERS SOLUTION 1,000 ML IV SCH (09:40)
[2020-08-27] MEDS: RANOLAZINE E.R. 500 MG TABLET (FP) PO SCH ×2 (09:40→21:36)
[2020-08-27] MEDS: ASPIRIN 81 MG CHEWABLE TABLETS PO SCH (09:40)
[2020-08-27] MEDS: PRASUGREL HCL 10 MG TAB PO SCH (09:40)
[2020-08-27] MEDS: LOSARTAN POTASSIUM 25 MG TABLET PO SCH (09:40)
--- NOTE | 2020-08-27 12:56 | EKG ---
Test Reason : Blood Pressure : / mmHG Vent. Rate : 075 BPM Atrial Rate : 075 BPM P-R Int : 156 ms QRS Dur : 086 ms QT Int : 376 ms P-R-T Axes : 048 029 048 degrees QTc Int : 419 ms NORMAL SINUS RHYTHM NORMAL ECG WHEN COMPARED WITH ECG OF 06-AUG-2020 12:23, NO SIGNIFICANT CHANGE WAS FOUND Confirmed by MD Garcia Edward ([id number]) on 08/27/2020 12:56:19 PM Referred By: Spencer Cordova Confirmed By:Anders Garcia MD
[2020-08-27] MEDS ORDERED: LACTATED RINGERS SOLUTION 1,000 ML/1,000 ML INFUS.BAG IV SCH (19:30)
[2020-08-27] MEDS ORDERED: ACETAMINOPHEN 325 MG TABLET (FP) PO ONE (21:17)
[2020-08-27] MEDS: ROSUVASTATIN CA 20 MG TABLET (FP) PO SCH (21:34)
[2020-08-27 23:37] VITALS: BMI 25.3
[2020-08-28] MEDS: INSULIN SLIDING SCALE (NOVOLOG) 1 VIAL SQ SCH ×2 (06:28→11:34)
[2020-08-28] MEDS ORDERED: ALBUTEROL SO4 0.083% IH SOL 2.5 MG/3 ML VIAL.NEB. NEB PRN (06:36)
[2020-08-28 07:25] LABS: BASO % 0.6 % (0-2.0); EOS % 2.3 % (0-4.5); HEMATOCRIT 39.8 % (35.4-49); HEMOGLOBIN 13.5 GM/dL (11.7-16.9); MCH 29.9 pg (25.7-33.7); MCHC 33.9 g/dl (32.0-35.9); MEAN CELL VOLUME 88.2 fl (80-96); MEAN PLT VOLUME 7.1 fl (7.5-11.1); MONO % 7.6 % (3.8-10.2); NEUT % 75.5 % (42.8-82.8); PLATELET COUNT 290 K/MM3 (134-434); RBC 4.52 M/mm3 (4.00-5.60); RDW 14.6 % (11.9-15.9); WHITE BLOOD COUNT 10.3 K/mm3 (4.0-10.0)
--- NOTE | 2020-08-28 07:46 | PN ---
Progress Note, Physician - Current Medication List Current Medications: Active Medications Albuterol Sulfate (Ventolin 0.083% Nebulizer Soln -) 1 amp NEB Q6H PRN PRN Reason: SHORT OF BREATH/WHEEZING Alvimopan (Entereg Capsule (Restricted) -) 12 mg PO BID [facility] Stop: 09/01/20 10:01 Last Admin: 08/27/20 21:36 Dose: 12 mg Documented by: Aspirin (Asa -) 81 mg PO DAILY [facility] Last Admin: 08/27/20 09:40 Dose: 81 mg Documented by: Heparin Sodium (Porcine) (Heparin -) 5,000 unit SQ BID [facility] Last Admin: 08/27/20 21:36 Dose: 5,000 unit Documented by: Lactated Ringer's (Lactated Ringers Solution) 1,000 ml in 1,000 mls @ 42 mls/hr IV ASDIR [facility] Last Admin: 08/27/20 21:33 Dose: 42 mls/hr Documented by: Insulin Aspart (Novolog Vial Sliding Scale -) 1 vial SQ ACHS [facility]; Protocol Last Admin: 08/28/20 06:28 Dose: Not Given Documented by: Losartan Potassium (Cozaar -) 25 mg PO DAILY [facility] Last Admin: 08/27/20 09:40 Dose: 25 mg Documented by: Metoprolol Succinate (Toprol Xl -) 100 mg PO DAILY [facility] Last Admin: 08/27/20 09:40 Dose: 100 mg Documented by: Ondansetron HCl (Zofran Injection) 4 mg IVPUSH Q6H PRN PRN Reason: NAUSEA AND/OR VOMITING Last Admin: 08/26/20 09:48 Dose: 4 mg Documented by: Pantoprazole Sodium (Protonix Iv) 40 mg IVPUSH DAILY [facility] Last Admin: 08/27/20 09:39 Dose: 40 mg Documented by: Prasugrel (Effient -) 10 mg PO DAILY [facility] Last Admin: 08/27/20 09:40 Dose: 10 mg Documented by: Ranolazine (Ranexa -) 500 mg PO BID [facility] Last Admin: 08/27/20 21:36 Dose: 500 mg Documented by: Rosuvastatin Calcium (Crestor -) 40 mg PO HS [facility] Last Admin: 08/27/20 21:34 Dose: 40 mg Documented by: - Objective Vital Signs: Vital Signs Temperature 98.8 F 08/28/20 06:00 Pulse Rate 87 08/28/20 06:00 Respiratory Rate 18 08/28/20 06:00 Blood Pressure 135/75 08/28/20 06:00 O2 Sat by Pulse Oximetry (%) 98 08/28/20 06:00 Labs: CBC, BMP 08/28/20 06:20 Problem List - Problems (1) S/P right hemicolectomy Code(s): Z90.49 - ACQUIRED ABSENCE OF OTHER SPECIFIED PARTS OF DIGESTIVE TRACT (2) Cecum mass Code(s): K63.89 - OTHER SPECIFIED DISEASES OF INTESTINE
[2020-08-28 07:53] LABS: ALBUMIN 2.7 g/dl (3.4-5.0); BILIRUBIN,TOTAL 0.4 mg/dL (0.2-1); BLOOD UREA NITROGEN 6.9 mg/dL (7-18); CALCIUM 8.5 mg/dL (8.5-10.1); CREATININE 0.6 mg/dL (0.55-1.3); MAGNESIUM 1.7 mg/dL (1.8-2.4); PHOSPHOROUS 3.1 mg/dL (2.5-4.9); POTASSIUM 4.1 mmol/L (3.5-5.1)
[2020-08-28] MEDS ORDERED: PT OWN MED DRAWER 7, Y5N ONE (09:56)
[2020-08-28] MEDS: HEPARIN NA (PORCINE) 5,000 UNITS/ML 1ML VIAL SQ SCH (09:58)
[2020-08-28] MEDS: RANOLAZINE E.R. 500 MG TABLET (FP) PO SCH (09:58)
[2020-08-28] MEDS: LOSARTAN POTASSIUM 25 MG TABLET PO SCH (09:58)
[2020-08-28] MEDS: ALVIMOPAN 12 MG CAP PO SCH (09:58)
[2020-08-28] MEDS: ASPIRIN 81 MG CHEWABLE TABLETS PO SCH (09:58)
[2020-08-28] MEDS: PRASUGREL HCL 10 MG TAB PO SCH (09:58)
[2020-08-28] MEDS ORDERED: MAGNESIUM SULF 50% (8.12 MEQ/2 ML-1 GM VIAL) IVPB ONE (11:00)
--- NOTE | 2020-08-28 11:01 | DS ---
"Physical Examination Vital Signs: Vital Signs Temperature 99.1 F 08/28/20 10:00 Pulse Rate 95 H 08/28/20 10:00 Respiratory Rate 18 08/28/20 10:00 Blood Pressure 134/78 08/28/20 10:00 O2 Sat by Pulse Oximetry (%) 99 08/28/20 10:00 Findings/Remarks: awake alert feeling better Constitutional: Yes: No Distress Cardiovascular: Yes: Regular Rate and Rhythm Respiratory: Yes: WNL Gastrointestinal: Yes: Normal Bowel Sounds, Soft Renal/: Yes: WNL Musculoskeletal: Yes: WNL Neurological: Yes: WNL Labs: CBC, BMP 08/28/20 06:20 08/28/20 06:20 Discharge Summary Problems reviewed: Yes Reason For Visit: CECAL ADENOCARCINOMA Current Active Problems Cecum mass (Acute) S/P right hemicolectomy (Acute) Procedures: Principal: colostomy surgery Hospital Course: admitted for cecal mass resection, pod #3 feeling better with surgical clearance Plan of Treatment: follow with surgery and PMD in 3-4 days Goals: follow up with Dr Cordova from surgery and your PMD Condition: Good - Instructions Diet, Activity, Other Instructions: Dr Cordova Discharge Instructions Dear MUSHTAQ BRANTLEY, Post Operative Instructions Physical activity Resume your normal everyday activity as tolerated no heavy lifting or exercise until seen by your surgeon. You may walk unlimited amounts of and climb stairs. You may resume driving the car when you feel safe and comfortable behind the wheel. Wound care You may shower the day after surgery. Diet There are no dietary restrictions. Eat healthy, high-fiber foods. Drink 6 to 8 glasses of liquid each day. This will assist in keeping your bowels are regular. Pain management You may take Tylenol or acetaminophen . Any pain prescription medication ordered should be taken as prescribed for moderate to severe pain. Call Dr. Cordova for any of the following: Severe pain not relieved by medication Fever of 101 or higher Excessive bleeding or drainage on dressing Inability to urinate Call the office at [phone] for an appointment in seven days. This report was requested by: Jane Harrison | Reference #: [id number] - Home Medications Comprehensive Discharge Medication List: Ambulatory Orders Aspirin [ASA -] 81 mg PO DAILY 09/07/14 Metoprolol Succinate 100 mg PO DAILY 04/23/20 Prasugrel HCl 10 mg PO DAILY 04/23/20 Insulin Sliding Scale [Novolog Vial Sliding Scale -] 1 vial SQ TIDAC units 08/07/20 Omeprazole 40 mg PO DAILY 08/07/20 Ranolazine [Ranolazine ER] 1,000 mg PO DAILY 08/07/20 Glimepiride 2 mg PO DAILY 08/25/20 Insulin Degludec [Tresiba Flextouch U-200] 200 unit SQ DAILY 08/25/20 Losartan Potassium 25 mg PO DAILY 08/25/20 Rosuvastatin [Crestor -] 40 mg PO DAILY 08/25/20 Tadalafil 5 mg PO DAILY 08/25/20"
[2020-08-28] MEDS: PANTOPRAZOLE SODIUM 40 MG VIAL IVPUSH SCH (11:18)
[2020-08-28 13:57] VITALS: BP 122/69; PULSE 85; TEMP 98.7
--- NOTE | 2020-08-29 12:53 | PATH ---
Surgical Pathology Report Patient Name: MUSHTAQ BRANTLEY [facility]. Rec. #: [id number] /Age/Gender: 1965 (Age: 55) / M Account: [id number] Location: [address] [place] [address]/[facility] Taken: 08/25/2020 Received: 08/25/2020 Reported: 08/29/2020 Physicians: Spencer Cordova M.D. 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 APPENDIX WITH NO SIGNIFICANT PATHOLOGIC CHANGE. VIABLE RESECTION MARGINS, NEGATIVE FOR DYSPLASIA. FIFTEEN LYMPH NODES, NEGATIVE FOR METASTATIC CARCINOMA (0/15). Electronically Signed King Ayoub M.D. Gross Description Received in formalin labeled "cecal mass and transverse colon," is a 7 cm in length portion of terminal ileum with an attached 18.5 cm in length portion of cecum and right colon. The specimen displays 2 stapled mucosal margins as well as moderate attached pericolonic adipose tissue. The serosa is zuniga-fuller and smooth. There is a 6 cm in length unremarkable vermiform appendix attached to the cecum. The mucosa displays a 1.8 x 1.5 cm zuniga, polypoid mass in the cecum, adjacent to the appendiceal orifice. No definitive invasion to the serosa is identified grossly. The mass is 9 cm from the proximal mucosal margin of resection and 5 cm from the mesenteric margin of resection. The remaining mucosa is zuniga with normal folds. Sectioning of the pericolonic adipose tissue reveals multiple zuniga lymph nodes. Separately received within the same container is an additional 3 cm in length portion of colon with 2 stapled mucosal margins. The serosa is zuniga-batista and smooth with moderate attached pericolonic adipose tissue. The mucosa is zuniga with normal folds. No mucosal lesions are identified. Corn Miller sections are submitted in 22 cassettes as follows: 1-terminal ileal mucosal margin of resection; 2-distal mucosal margin of resection; 3-mesenteric margin of resection; 4-appendix; 5-6-mass to inked serosal surface; 7-remainder of mass; 8-uninvolved it sales representative ileum; 9-uninvolved it sales representative distal right colon; 66-79-ceuolvzxcdli stapled mucosal margins of separately received portion of bowel; 12-it sales representative section from separately received portion of bowel; 13-22-two whole possible lymph nodes each. DL08/26/2020 saudi08/26/2020
== END 2020-08-28 16:23 | disposition home or self-care (01) | DRG 331 ==
LOC: J2C 04:39 → EDSTATUS 15:37 → J6S 15:51
PROVIDERS: ADMIT Surgery; ATTEND Family Medicine
PROC: 0D1B4ZH Bypass Ileum to Cecum, Percutaneous Endoscopic Approach (ICD-10-PCS; 2020-08-25)
PROC: 8E0W8CZ Robotic Assisted Procedure of Trunk Region, Via Natural or Artificial Opening Endoscopic (ICD-10-PCS; 2020-08-25)
PROC: 0DTF4ZZ Resection of Right Large Intestine, Percutaneous Endoscopic Approach (ICD-10-PCS; principal; 2020-08-25 08:00)
DX: C18.0 Malignant neoplasm of cecum (principal); I25.10 Atherosclerotic heart disease of native coronary artery without angina pectoris; I10 Essential (primary) hypertension; E78.5 Hyperlipidemia, unspecified; E11.9 Type 2 diabetes mellitus without complications; F17.210 Nicotine dependence, cigarettes, uncomplicated; Z95.5 Presence of coronary angioplasty implant and graft
CPT/HCPCS: 36415; 71045-TC-FY; 80048; 80053; 80061; 82550; 82553; 82962; 83036; 83721; 83735; 84100; 84484; 85025; 86850; 86900; 86901; 88307-TC; 93005; 93010; 94760; J0131; J1644

== ENCOUNTER 2021-11-11 19:33 | Emergency (ER) | payer BC ==
[2021-11-11 20:43] VITALS: BP 131/71; PULSE 81; TEMP 98.5; BMI 22.8
[2021-11-11] MEDS ORDERED: ACETAMINOPHEN 325 MG TABLET (FP) PO ONE (22:48)
[2021-11-11] MEDS ORDERED: ACETAMINOPHEN 325 MG TABLET (FP) ONE (23:16)
[2021-11-11 23:55] LABS: BASO % 1.1 % (0-2.0); HEMATOCRIT 42.6 % (35.4-49); HEMOGLOBIN 14.4 GM/dL (11.7-16.9); LYMPH % 27.8 % (8-40); MCH 29.4 pg (25.7-33.7); MCHC 33.9 g/dl (32.0-35.9); MEAN CELL VOLUME 86.8 fl (80-96); MEAN PLT VOLUME 7.1 fl (7.5-11.1); MONO % 7.6 % (3.8-10.2); NEUT % 60.5 % (42.8-82.8); PLATELET COUNT 312 10^3/uL (134-434); RBC 4.91 M/mm3 (4.00-5.60); RDW 15.2 % (11.9-15.9); WHITE BLOOD COUNT 9.3 K/mm3 (4.0-10.0)
[2021-11-11 23:55] LABS: PH,URINE 6.5 (5.0-8.0); URINE APPEARANCE CLOUDY; URINE BILIRUBIN NEGATIVE (NEGATIVE); URINE COLOR YELLOW; URINE GLUCOSE (UA) 2+ (NEGATIVE); URINE KETONE TRACE (NEGATIVE); URINE LEUK ESTERASE NEGATIVE (NEGATIVE); URINE NITRITE NEGATIVE (NEGATIVE); URINE PROTEIN NEGATIVE (NEGATIVE); URINE UROBILINOGEN 0.2 mg/dL (0.2-1.0)
[2021-11-12] MEDS ORDERED: LACTATED RINGERS SOLUTION 1000 ML INFUS.BAG IV ONE (00:02)
[2021-11-12 00:14] LABS: ALBUMIN 3.6 g/dl (3.4-5.0); BLOOD UREA NITROGEN 12.9 mg/dL (7-18); CALCIUM 9.3 mg/dL (8.5-10.1)
[2021-11-12 00:17] LABS: CREATININE 0.8 mg/dL (0.55-1.3)
[2021-11-12 00:19] LABS: BILIRUBIN,TOTAL 0.3 mg/dL (0.2-1)
== END 2021-11-12 01:00 | disposition home or self-care (01) ==
LOC: JER 19:33
DX: N45.1 Epididymitis (principal)
CPT/HCPCS: 36415; 76870-TC; 80053; 81003; 83690; 85025; 87086; 87491; 87591; 93005; 93010; 99285-25

== ENCOUNTER 2022-09-03 20:38 | Emergency (ER) | payer BC ==
[2022-09-03 20:47] VITALS: BP 131/67; PULSE 83; RESP 18; TEMP 98.1; BMI 21.9
== END 2022-09-03 21:55 | disposition home or self-care (01) ==
LOC: JERFT 20:38
DX: H60.391 Other infective otitis externa, right ear (principal)
CPT/HCPCS: 99281-25

== ENCOUNTER 2022-09-25 20:52 | Emergency (ER) | payer BC ==
[2022-09-25 21:03] VITALS: BP 130/68; PULSE 80; RESP 18; TEMP 97.6; BMI 21.9
[2022-09-25] MEDS ORDERED: AMOX TR/POT CLAV 875MG/125MG TABLETS (FP) PO ONE (22:58)
== END 2022-09-26 00:15 | disposition home or self-care (01) ==
LOC: JER 20:52
PROC: 0H99XZZ Drainage of Perineum Skin, External Approach (ICD-10-PCS; principal; 2022-09-25)
DX: K61.0 Anal abscess (principal)
CPT/HCPCS: 99283-25

== ENCOUNTER 2022-09-28 17:48 | Emergency (ER) | payer BC ==
[2022-09-28 17:54] VITALS: BP 139/76; PULSE 87; RESP 17; TEMP 97.5; BMI 21.9
== END 2022-09-28 19:05 | disposition home or self-care (01) ==
LOC: JERFT 17:48
DX: Z48.00 Encounter for change or removal of nonsurgical wound dressing (principal)
CPT/HCPCS: 99281-25

== ENCOUNTER 2023-07-05 07:40 | Day surgery (SDC) | payer BC ==
[2023-07-04 12:47] VITALS: BMI 22.0
[2023-07-05] MEDS ORDERED: PROPOFOL 120 ML ONE (07:59)
[2023-07-05 09:26] VITALS: RESP 18; TEMP 97.5
[2023-07-05 09:38] VITALS: BP 115/67; PULSE 75
== END 2023-07-05 10:12 | disposition home or self-care (01) ==
LOC: FASU-ENDO 07:40
PROVIDERS: ATTEND Internal Medicine Gastroenterology
PROC: 0DJ08ZZ Inspection of Upper Intestinal Tract, Via Natural or Artificial Opening Endoscopic (ICD-10-PCS; principal; 2023-07-05 09:03)
DX: R10.13 Epigastric pain (principal)
CPT/HCPCS: 82962

== ENCOUNTER 2023-08-28 20:37 | Emergency (ER) | payer BC ==
[2023-08-28] MEDS ORDERED: DALBAVANCIN HCL 1,500 MG in DEXTROSE 5%-WATER - 500 ML IVPB ONE (20:48)
[2023-08-28] MEDS ORDERED: DALBAVANCIN HCL 500 MG VIAL (RESTRICTED TO ID ONLY) IVPB ONE ×2 (20:51)
[2023-08-28 21:36] LABS: HEMATOCRIT 43.6 % (35.4-49); HEMOGLOBIN 14.2 G/dL (11.7-16.9); MCH 27.3 pg (25.7-33.7); MCHC 32.6 g/dl (32.0-35.9); MEAN CELL VOLUME 83.6 fl (80-96); MEAN PLT VOLUME 7.4 fl (7.5-11.1); PLATELET COUNT 328.5 10^3/uL (134-434); RBC 5.21 10^6/uL (4.00-5.60); RDW 17.2 % (11.9-15.9); WHITE BLOOD COUNT 12.5 10^3/uL (4.0-10.8)
[2023-08-28 21:44] LABS: ANION GAP 12 MMOL/L (8-16); BLOOD UREA NITROGEN 21.2 mg/dl (7-18); CALCIUM 9.3 mg/dl (8.5-10.1); CHLORIDE 101 mmol/L (98-107); CO2 23 mmol/L (21-32); CREATININE 0.8 mg/dl (0.6-1.3); GLUCOSE,RANDOM 227 mg/dl (74-106); POTASSIUM 4.3 mmol/L (3.5-5.1); SODIUM 136 mmol/L (136-145)
[2023-08-28 22:17] LABS: ERYTHROCYTE SEDIMENTATION RATE 44 mm/hr (0-20)
== END 2023-08-28 22:52 | disposition home or self-care (01) ==
LOC: FER 20:37
DX: M79.672 Pain in left foot (principal); R22.41 Localized swelling, mass and lump, right lower limb; E11.621 Type 2 diabetes mellitus with foot ulcer
CPT/HCPCS: 36415; 73630-TC-RT-FY; 80048; 85027; 85651; 86140; 99284-25; J0875

== ENCOUNTER 2023-09-04 21:03 | Emergency (ER) | payer BC ==
[2023-09-04 21:20] VITALS: BP 116/77; PULSE 82; RESP 19; TEMP 98.6; BMI 22.8
[2023-09-04] MEDS ORDERED: ACETAMINOPHEN 1000 MG/100 ML BAG IVPB ONE (22:21)
[2023-09-04] MEDS ORDERED: guaiFENesin/CODEINE 10 ML UNIT-DOSE CUPS PO ONE (22:22)
[2023-09-04] MEDS ORDERED: AZITHROMYCIN 250 MG TABLET PO ONE (22:23)
[2023-09-04] MEDS ORDERED: ACETAMINOPHEN 500 MG TABLET (FP) PO ONE (22:42)
[2023-09-04] MEDS ORDERED: guaiFENesin/CODEINE 10 ML UNIT-DOSE CUPS ONE (22:45)
[2023-09-04] MEDS ORDERED: AZITHROMYCIN 500 MG TABLET ONE (22:45)
[2023-09-04] MEDS ORDERED: ACETAMINOPHEN 500 MG TABLET (FP) ONE (22:45)
[2023-09-04 23:03] LABS: HEMATOCRIT 42.2 % (35.4-49); HEMOGLOBIN 13.9 G/dL (11.7-16.9); MCH 27.2 pg (25.7-33.7); MCHC 32.9 g/dl (32.0-35.9); MEAN CELL VOLUME 82.6 fl (80-96); MEAN PLT VOLUME 8.1 fl (7.5-11.1); PLATELET COUNT 283.8 10^3/uL (134-434); RBC 5.11 10^6/uL (4.00-5.60); RDW 17.4 % (11.9-15.9); WHITE BLOOD COUNT 8.1 10^3/uL (4.0-10.8)
[2023-09-04 23:21] LABS: ALBUMIN 4.3 g/dl (3.4-5.0); BILIRUBIN,TOTAL 0.5 mg/dl (0.2-1); BLOOD UREA NITROGEN 24.2 mg/dl (7-18); CALCIUM 8.6 mg/dl (8.5-10.1); CREATININE 1.2 mg/dl (0.6-1.3); SGOT/AST 82.8 U/L (15-37); SGPT/ALT 46.4 U/L (7-52); TOT PROT 7.2 g/dl (6.4-8.2)
[2023-09-04 23:29] LABS: PLATELET ESTIMATE ADEQUATE
== END 2023-09-05 00:16 | disposition home or self-care (01) ==
LOC: FER 21:03
DX: R05.9 Cough, unspecified (principal); J02.9 Acute pharyngitis, unspecified; M79.10 Myalgia, unspecified site; J40 Bronchitis, not specified as acute or chronic; Z20.822 Contact with and (suspected) exposure to COVID-19
CPT/HCPCS: 0241U-QW; 36415; 71045-TC-FY; 80053; 81003; 85027; 87651; 99284-25

== ENCOUNTER 2024-03-09 04:22 | Day surgery (SDC) | payer BC, OTHER ==
[2024-03-06 15:13] VITALS: BMI 22.8
[2024-03-09] MEDS ORDERED: LIDOCAINE HCL/PF 2% SDV 5ML VIAL ONE (07:19)
[2024-03-09] MEDS ORDERED: FENTANYL CITRATE/PF 50 MCG/ML VIAL ONE ×4 (07:19→11:29)
[2024-03-09] MEDS ORDERED: PROPOFOL 20 ML ONE (07:19)
[2024-03-09] MEDS ORDERED: ROCURONIUM BROMIDE 50 MG/5 ML SYRINGE ONE (07:19)
[2024-03-09] MEDS ORDERED: SUCCINYLCHOLINE CHLORIDE 200 MG/10 ML SYRINGE ONE (07:19)
[2024-03-09] MEDS ORDERED: BUPIVACAINE HCL/PF 0.5% (5MG/ML) 10 ML VIAL ONE (07:20)
[2024-03-09] MEDS ORDERED: MIDAZOLAM HCL 2 MG/2 ML SINGLE DOSE VIAL ONE (07:20)
[2024-03-09] MEDS ORDERED: DEXAMETHASONE SOD PHOSPHATE 4 MG/1 ML VIAL ONE (08:17)
[2024-03-09] MEDS ORDERED: ceFAZolin SODIUM 1 GM VIAL ONE (08:17)
[2024-03-09] MEDS: ceFAZolin SODIUM 1 GM VIAL IVPB ONE (08:25)
[2024-03-09] MEDS: BUPIVACAINE HCL/PF 0.5% (5MG/ML) 10 ML VIAL IJ ONE ×2 (08:38)
[2024-03-09] MEDS ORDERED: oxyCODONE HCL 5 MG TABLET PO PRN ×2 (09:40)
[2024-03-09] MEDS ORDERED: ONDANSETRON 4 MG/2 ML VIAL IVPUSH PRN (09:40)
[2024-03-09] MEDS ORDERED: PROMETHAZINE HCL 25 MG/1 ML VIAL IVPB PRN (09:40)
[2024-03-09] MEDS ORDERED: LACTATED RINGERS SOLUTION 1,000 ML IV SCH (09:45)
[2024-03-09] MEDS ORDERED: KETOROLAC TROMETHAMINE 30 MG/1 ML VIAL ONE (10:13)
[2024-03-09] MEDS ORDERED: ONDANSETRON 4 MG/2 ML VIAL ONE (10:13)
[2024-03-09] MEDS ORDERED: ACETAMINOPHEN INJECTION 100 ML IVPB ONE (10:38)
[2024-03-09] MEDS: ACETAMINOPHEN 1000 MG/100 ML BAG IVPB ONE ×2 (10:42→12:32)
[2024-03-09 12:35] VITALS: RESP 18; TEMP 98
[2024-03-09 13:40] VITALS: BP 118/68; PULSE 80
== END 2024-03-09 14:44 | disposition home or self-care (01) ==
LOC: JASU-SURG 04:22
PROVIDERS: ATTEND Surgery
PROC: 0DQV4ZZ Repair Mesentery, Percutaneous Endoscopic Approach (ICD-10-PCS; principal; 2024-03-09 08:00)
DX: K40.20 Bilateral inguinal hernia, without obstruction or gangrene, not specified as recurrent (principal)
CPT/HCPCS: 49650; S2900; 82962; 94760; C1781; J0131

== ENCOUNTER 2024-05-29 18:06 | Emergency (ER) | payer BC, OTHER ==
[2024-05-29 18:25] VITALS: BP 101/67; PULSE 84; RESP 16; TEMP 98.5; BMI 22.8
== END 2024-05-29 20:10 | disposition home or self-care (01) ==
LOC: FER 18:06
DX: J20.9 Acute bronchitis, unspecified (principal); M79.10 Myalgia, unspecified site; R05.9 Cough, unspecified; Z20.822 Contact with and (suspected) exposure to COVID-19
CPT/HCPCS: 0241U-QW; 71046-TC-FY; 82962; 99284-25

== ENCOUNTER 2024-06-11 03:58 | Day surgery (SDC) | payer BC, OTHER ==
[2024-06-08 09:59] VITALS: BMI 22.8
[2024-06-11] MEDS ORDERED: ONDANSETRON 4 MG/2 ML VIAL IVPUSH PRN (09:07)
[2024-06-11] MEDS ORDERED: LACTATED RINGERS SOLUTION 1,000 ML IV SCH (09:15)
[2024-06-11] MEDS ORDERED: VANCOMYCIN 1,000 MG VIAL (RESTRICTED TO ID ONLY) ONE (11:16)
[2024-06-11] MEDS ORDERED: BACITRACIN ZINC 15 GM TUBE TOPICAL OINTMENT ONE (11:16)
[2024-06-11] MEDS ORDERED: GENTAMICIN SO4 80 MG/2 ML VIAL ONE (12:17)
[2024-06-11] MEDS ORDERED: PROPOFOL 20 ML ONE (13:26)
[2024-06-11] MEDS ORDERED: MIDAZOLAM HCL 2 MG/2 ML SINGLE DOSE VIAL ONE (13:26)
[2024-06-11] MEDS: VANCOMYCIN 1,000 MG VIAL (RESTRICTED TO ID ONLY) IVPB ONE (13:32)
[2024-06-11] MEDS: GENTAMICIN SO4 80 MG/2 ML VIAL IVPB ONE (13:32)
[2024-06-11 16:42] VITALS: RESP 16; TEMP 97.5
[2024-06-11] MEDS ORDERED: oxyCODONE HCL 5 MG TABLET ONE (16:58)
[2024-06-11] MEDS: oxyCODONE HCL 5 MG TABLET PO PRN (16:59)
[2024-06-11 17:08] VITALS: BP 130/70; PULSE 7
== END 2024-06-11 17:37 | disposition home or self-care (01) ==
LOC: JASU-SURG 03:58
PROVIDERS: ATTEND Urology
PROC: 0VUS0JZ Supplement Penis with Synthetic Substitute, Open Approach (ICD-10-PCS; principal; 2024-06-11 11:00)
DX: N52.9 Male erectile dysfunction, unspecified (principal)
CPT/HCPCS: 54400; L8699; 82962; 94760; C2622

== ENCOUNTER 2024-06-19 13:49 | Emergency (ER) | payer BC, OTHER ==
[2024-06-19 15:33] VITALS: BP 130/80; PULSE 83; RESP 20; TEMP 98; BMI 21.2
[2024-06-19] MEDS: IBUPROFEN 600 MG TABLET (FP) PO ONE (15:54)
== END 2024-06-19 15:50 | disposition home or self-care (01) ==
LOC: FER 13:49
DX: T81.31XA Disruption of external operation (surgical) wound, not elsewhere classified, initial encounter (principal); N48.89 Other specified disorders of penis
CPT/HCPCS: 99283-25

== ENCOUNTER 2024-07-17 20:07 | Emergency (ER) | payer BC, OTHER ==
[2024-07-17 20:24] VITALS: BP 128/71; PULSE 87; RESP 18; TEMP 98.2; BMI 29.2
[2024-07-17] MEDS ORDERED: ACETAMINOPHEN INJECTION 100 ML IVPB ONE (20:55)
[2024-07-17] MEDS: ACETAMINOPHEN 1000 MG/100 ML BAG IVPB ONE (21:13)
[2024-07-17 21:21] LABS: BASO % 0.8 % (0-2.0); EOS % 4.4 % (0-4.5); HEMATOCRIT 46.5 % (35.4-49); HEMOGLOBIN 15.4 GM/dL (11.7-16.9); LYMPH % 17.1 % (8-40); MCH 27.5 pg (25.7-33.7); MCHC 33.2 g/dl (32.0-35.9); MEAN CELL VOLUME 82.8 fl (80-96); MEAN PLT VOLUME 7.1 fl (7.5-11.1); MONO % 7.3 % (3.8-10.2); NEUT % 70.4 % (42.8-82.8); PLATELET COUNT 341 10^3/uL (134-434); RBC 5.62 M/mm3 (4.00-5.60); RDW 18.3 % (11.9-15.9); WHITE BLOOD COUNT 12.7 K/mm3 (4.0-10.0)
[2024-07-17 21:41] LABS: POTASSIUM 4.4 mmol/L (3.5-5.1)
[2024-07-17 21:42] LABS: BLOOD UREA NITROGEN 14.6 mg/dL (7-18); CALCIUM 9.5 mg/dL (8.5-10.1)
[2024-07-17 21:45] LABS: CREATININE 1.1 mg/dL (0.55-1.3)
[2024-07-17 21:48] LABS: BILIRUBIN,TOTAL 0.5 mg/dL (0.2-1); TOT PROT 7.8 g/dl (6.4-8.2)
[2024-07-18] MEDS ORDERED: LIDOCAINE HCL 1%, 10 MG/ML (20ML VIAL) ONE (00:49)
[2024-07-18] MEDS: LIDOCAINE HCL 1%, 10 MG/ML (50 mL VIAL) SQ ONE (00:50)
[2024-07-18] MEDS: CEPHALEXIN MONOHYDRATE 500 MG CAPSULE (UD) PO ONE (01:23)
[2024-07-18] MEDS ORDERED: CEPHALEXIN MONOHYDRATE 500 MG CAPSULE (UD) ONE (01:23)
== END 2024-07-18 01:28 | disposition home or self-care (01) ==
LOC: JER 20:07
PROC: 0H98XZZ Drainage of Buttock Skin, External Approach (ICD-10-PCS; principal; 2024-07-17)
DX: L02.31 Cutaneous abscess of buttock (principal); M54.50 Low back pain, unspecified
CPT/HCPCS: 36415; 72193-TC; 80053; 85025; 99285-25; J0131; Q9967

== ENCOUNTER 2025-07-24 21:08 | Inpatient (IN) | payer BC, OTHER ==
[2025-07-24 21:21] VITALS: BMI 22.3
[2025-07-24 22:20] LABS: ABSOLUTE IMMATURE GRANULOCYTES 0.05 x10^3/uL (0.0-0.031); BASOPHILS # 0.11 x10^3/uL (0.01-0.08); EOSINOPHIL % 3.7 % (0.8-7.0); EOSINOPHILS # 0.39 x10^3/uL (0.04-0.54); MCHC 32.8 g/dl (32.3-36.5); MEAN CELL VOLUME 85.1 fl (79.0-92.2); MEAN PLT VOLUME 8.9 fl (9.4-12.4); MONOCYTE # 0.77 x10^3/uL (0.30-0.82); MONOCYTE % 7.4 % (5.3-12.2); RDW 17.5 % (12.2-16.4)
[2025-07-24 22:29] LABS: INR 1.13 (0.83-1.09); PROTHROMBIN TIME (PATIENT) 12.3 SEC (9.7-13.0)
[2025-07-24] MEDS ORDERED: VANCOMYCIN 1 GM PREMIX (F) 1 GM/200 ML BAG ONE (22:31)
[2025-07-24] MEDS ORDERED: PIPERACILLIN/TAZOB 4.5 GM 4.5 GM/100 ML BAG IVPB ONE (22:31)
[2025-07-24 22:32] LABS: ACTIVATED PTT 30.5 SECONDS (25.2-36.5)
[2025-07-24 22:35] LABS: GLUCOSE,RANDOM 272.0 mg/dL (74-106); TOT PROT 7.5 g/dl (6.4-8.2)
[2025-07-24 22:37] LABS: CO2 22.0 mmol/L (21-32)
[2025-07-24 22:38] LABS: ALK PHOS 83.0 U/L (40-150)
[2025-07-24] MEDS: PIPERACILLIN/TAZOB 4.5 GM 4.5 GM in DEXTROSE 5%-WATER 100 ML IVPB ONE (22:39)
[2025-07-24 22:41] LABS: CREATININE 1.32 mg/dL (0.55-1.3); SGOT/AST 19.0 U/L (5-34); SGPT/ALT 10.0 U/L (0-55)
[2025-07-24] MEDS: VANCOMYCIN 1,000 MG in DEXTROSE 5%-WATER - 250 ML IVPB ONE (23:14)
[2025-07-25] MEDS ORDERED: ACETAMINOPHEN 325 MG TABLET (FP) PO PRN (00:25)
[2025-07-25] MEDS ORDERED: PANTOPRAZOLE 40 MG TABLET PO ONE (01:08)
[2025-07-25] MEDS: D5-1/2NS+20 MEQ KCL - 20 MEQ/1,000 ML INFUS.BAG IV SCH (01:09)
[2025-07-25] MEDS: PANTOPRAZOLE 40 MG TABLET PO SCH (01:09)
[2025-07-25 06:36] LABS: ABSOLUTE IMMATURE GRANULOCYTES 0.13 x10^3/uL (0.0-0.031); BASOPHILS # 0.11 x10^3/uL (0.01-0.08); EOSINOPHIL % 3.3 % (0.8-7.0); EOSINOPHILS # 0.34 x10^3/uL (0.04-0.54); MCHC 32.2 g/dl (32.3-36.5); MEAN CELL VOLUME 85.1 fl (79.0-92.2); MEAN PLT VOLUME 9.1 fl (9.4-12.4); MONOCYTE # 0.87 x10^3/uL (0.30-0.82); MONOCYTE % 8.4 % (5.3-12.2); RDW 17.4 % (12.2-16.4)
[2025-07-25 06:52] LABS: GLUCOSE,RANDOM 238.0 mg/dL (74-106)
[2025-07-25 06:54] LABS: CO2 23.0 mmol/L (21-32)
[2025-07-25 06:58] LABS: CREATININE 1.2 mg/dL (0.55-1.3)
[2025-07-25] MEDS ORDERED: INSULIN ASPART SLIDING SCALE (NOVOLOG) 1 VIAL SQ SCH ×2 (07:00)
[2025-07-25] MEDS: INSULIN ASPART SLIDING SCALE (NOVOLOG) 1 VIAL SQ SCH (09:52)
[2025-07-25] MEDS: CLOPIDOGREL BISULFATE 75 MG TABLET (FP) PO SCH (11:08)
[2025-07-25] MEDS: ASPIRIN COATED 81 MG TABLET.EC PO SCH (11:08)
[2025-07-25] MEDS: INSULIN (NOVOLOG MIX 70/30) 100 UNITS/ML MDV SQ SCH (16:28)
[2025-07-25] MEDS: PIPERACILLIN/TAZOB 3.375 GM 3.375 GM in DEXTROSE 5%-WATER - 50 ML IVPB SCH (18:51)
[2025-07-25] MEDS: VANCOMYCIN/WATER FOR INJ (PEG) 1,000 MG/200 ML BAG IVPB SCH (20:22)
[2025-07-25] MEDS: ATORVASTATIN CA 80 MG TABLET (FP) PO SCH (21:10)
[2025-07-26] MEDS: INSULIN (NOVOLOG MIX 70/30) 100 UNITS/ML MDV SQ SCH ×2 (06:09→17:12)
[2025-07-26 08:08] LABS: ABSOLUTE IMMATURE GRANULOCYTES 0.04 x10^3/uL (0.0-0.031); BASOPHILS # 0.10 x10^3/uL (0.01-0.08); EOSINOPHIL % 3.9 % (0.8-7.0); EOSINOPHILS # 0.40 x10^3/uL (0.04-0.54); MCHC 32.3 g/dl (32.3-36.5); MEAN CELL VOLUME 85.2 fl (79.0-92.2); MEAN PLT VOLUME 8.8 fl (9.4-12.4); MONOCYTE # 0.70 x10^3/uL (0.30-0.82); MONOCYTE % 6.8 % (5.3-12.2); RDW 17.2 % (12.2-16.4)
[2025-07-26 09:06] LABS: GLUCOSE,RANDOM 171.0 mg/dL (74-106)
[2025-07-26 09:08] LABS: CO2 22.0 mmol/L (21-32)
[2025-07-26 09:12] LABS: CREATININE 0.91 mg/dL (0.55-1.3)
[2025-07-26] MEDS: COLLAGENASE CLOSTRIDIUM HIST. 30 GRAMS TUBE TP SCH (14:20)
[2025-07-26] MEDS: POLYETHYLENE GLYCOL (HEALTHYLAX) 3350 17 GM PACKET PO SCH (21:40)
[2025-07-26] MEDS: DOCUSATE SODIUM 100 MG CAPSULE (FP) PO SCH (21:41)
[2025-07-27 07:59] LABS: ABSOLUTE IMMATURE GRANULOCYTES 0.06 x10^3/uL (0.0-0.031); BASOPHILS # 0.12 x10^3/uL (0.01-0.08); EOSINOPHIL % 4.0 % (0.8-7.0); EOSINOPHILS # 0.40 x10^3/uL (0.04-0.54); MCHC 32.5 g/dl (32.3-36.5); MEAN CELL VOLUME 84.9 fl (79.0-92.2); MEAN PLT VOLUME 8.6 fl (9.4-12.4); MONOCYTE # 0.54 x10^3/uL (0.30-0.82); MONOCYTE % 5.4 % (5.3-12.2); RDW 17.1 % (12.2-16.4)
[2025-07-27 08:23] LABS: GLUCOSE,RANDOM 140.0 mg/dL (74-106)
[2025-07-27 08:25] LABS: CO2 21.0 mmol/L (21-32)
[2025-07-27 08:29] LABS: CREATININE 0.96 mg/dL (0.55-1.3)
[2025-07-27] MEDS: D5-1/2NS+20 MEQ KCL - 20 MEQ/1,000 ML INFUS.BAG IV SCH (18:43)
[2025-07-28 08:19] LABS: ABSOLUTE IMMATURE GRANULOCYTES 0.03 x10^3/uL (0.0-0.031); BASOPHILS # 0.09 x10^3/uL (0.01-0.08); EOSINOPHIL % 4.4 % (0.8-7.0); EOSINOPHILS # 0.39 x10^3/uL (0.04-0.54); MCHC 32.6 g/dl (32.3-36.5); MEAN CELL VOLUME 84.5 fl (79.0-92.2); MEAN PLT VOLUME 8.7 fl (9.4-12.4); MONOCYTE # 0.56 x10^3/uL (0.30-0.82); MONOCYTE % 6.3 % (5.3-12.2); RDW 17.3 % (12.2-16.4)
[2025-07-28 08:45] LABS: GLUCOSE,RANDOM 126.0 mg/dL (74-106)
[2025-07-28 08:46] LABS: CO2 22.0 mmol/L (21-32)
[2025-07-28 08:50] LABS: CREATININE 0.93 mg/dL (0.55-1.3)
[2025-07-29] MEDS: INSULIN (NOVOLOG MIX 70/30) 100 UNITS/ML MDV SQ SCH ×2 (06:01→17:30)
[2025-07-29 08:46] LABS: ABSOLUTE IMMATURE GRANULOCYTES 0.03 x10^3/uL (0.0-0.031); BASOPHILS # 0.09 x10^3/uL (0.01-0.08); EOSINOPHIL % 3.6 % (0.8-7.0); EOSINOPHILS # 0.38 x10^3/uL (0.04-0.54); MCHC 32.9 g/dl (32.3-36.5); MEAN CELL VOLUME 84.8 fl (79.0-92.2); MEAN PLT VOLUME 8.8 fl (9.4-12.4); MONOCYTE # 0.65 x10^3/uL (0.30-0.82); MONOCYTE % 6.2 % (5.3-12.2); RDW 17.2 % (12.2-16.4)
[2025-07-29 09:30] LABS: GLUCOSE,RANDOM 132.0 mg/dL (74-106)
[2025-07-29 09:31] LABS: CO2 24.0 mmol/L (21-32)
[2025-07-29 09:35] LABS: CREATININE 0.92 mg/dL (0.55-1.3)
[2025-07-30 08:27] LABS: ABSOLUTE IMMATURE GRANULOCYTES 0.03 x10^3/uL (0.0-0.031); BASOPHILS # 0.08 x10^3/uL (0.01-0.08); EOSINOPHIL % 3.9 % (0.8-7.0); EOSINOPHILS # 0.35 x10^3/uL (0.04-0.54); MCHC 32.5 g/dl (32.3-36.5); MEAN CELL VOLUME 85.4 fl (79.0-92.2); MEAN PLT VOLUME 8.8 fl (9.4-12.4); MONOCYTE # 0.58 x10^3/uL (0.30-0.82); MONOCYTE % 6.4 % (5.3-12.2); RDW 17.2 % (12.2-16.4)
[2025-07-30 08:49] LABS: GLUCOSE,RANDOM 195.0 mg/dL (74-106)
[2025-07-30 08:51] LABS: CO2 23.0 mmol/L (21-32)
[2025-07-30 08:55] LABS: CREATININE 0.9 mg/dL (0.55-1.3)
[2025-07-30] MEDS ORDERED: MIDAZOLAM HCL 2 MG/2 ML SINGLE DOSE VIAL ONE (09:57)
[2025-07-30] MEDS ORDERED: BUPIVACAINE HCL/PF 0.5% (5MG/ML) 10 ML VIAL ONE (10:13)
[2025-07-30] MEDS ORDERED: LIDOCAINE HCL 1%, 10 MG/ML (20ML VIAL) ONE (10:13)
[2025-07-30] MEDS: LIDOCAINE HCL 1%, 10 MG/ML (20ML VIAL) INF ONE ×2 (10:30)
[2025-07-30] MEDS: BUPIVACAINE HCL/PF 0.5% (5MG/ML) 10 ML VIAL IJ ONE ×2 (10:30)
[2025-07-30] MEDS ORDERED: KETOROLAC TROMETHAMINE 30 MG/1 ML VIAL ONE (13:48)
[2025-07-30] MEDS: DOCUSATE SODIUM 100 MG CAPSULE (FP) PO SCH (15:03)
[2025-07-30] MEDS ORDERED: INSULIN (NOVOLOG MIX 70/30) 100 UNITS/ML MDV SQ SCH (16:30)
[2025-07-30] MEDS ORDERED: INSULIN ASPART SLIDING SCALE (NOVOLOG) 1 VIAL SQ SCH (16:30)
[2025-07-30] MEDS: INSULIN (NOVOLOG MIX 70/30) 100 UNITS/ML MDV SQ SCH (16:55)
[2025-07-30] MEDS: INSULIN ASPART SLIDING SCALE (NOVOLOG) 1 VIAL SQ SCH (16:57)
[2025-07-30] MEDS: PIPERACILLIN/TAZOB 3.375 GM 3.375 GM in DEXTROSE 5%-WATER - 50 ML IVPB SCH (21:45)
[2025-07-30] MEDS: ATORVASTATIN CA 80 MG TABLET (FP) PO SCH (21:46)
[2025-07-30] MEDS: POLYETHYLENE GLYCOL (HEALTHYLAX) 3350 17 GM PACKET PO SCH (21:46)
[2025-07-30] MEDS: ACETAMINOPHEN 325 MG TABLET (FP) PO PRN (21:49)
[2025-07-31 09:12] LABS: ABSOLUTE IMMATURE GRANULOCYTES 0.04 x10^3/uL (0.0-0.031); BASOPHILS # 0.08 x10^3/uL (0.01-0.08); EOSINOPHIL % 3.7 % (0.8-7.0); EOSINOPHILS # 0.32 x10^3/uL (0.04-0.54); MCHC 32.6 g/dl (32.3-36.5); MEAN CELL VOLUME 85.1 fl (79.0-92.2); MEAN PLT VOLUME 8.9 fl (9.4-12.4); MONOCYTE # 0.66 x10^3/uL (0.30-0.82); MONOCYTE % 7.6 % (5.3-12.2); RDW 16.8 % (12.2-16.4)
[2025-07-31 10:22] LABS: GLUCOSE,RANDOM 252.0 mg/dL (74-106)
[2025-07-31 10:23] LABS: CO2 20.0 mmol/L (21-32)
[2025-07-31 10:27] LABS: CREATININE 0.98 mg/dL (0.55-1.3)
[2025-07-31] MEDS: PANTOPRAZOLE 40 MG TABLET PO SCH (10:37)
[2025-07-31] MEDS: CLOPIDOGREL BISULFATE 75 MG TABLET (FP) PO SCH (10:37)
[2025-07-31] MEDS: ASPIRIN COATED 81 MG TABLET.EC PO SCH (10:37)
[2025-07-31] MEDS: COLLAGENASE CLOSTRIDIUM HIST. 30 GRAMS TUBE TP SCH (10:39)
[2025-07-31] MEDS: D5-1/2NS+20 MEQ KCL - 20 MEQ/1,000 ML INFUS.BAG IV SCH (10:46)
[2025-07-31] MEDS ORDERED: INSULIN (NOVOLOG MIX 70/30) 100 UNITS/ML MDV SQ SCH (18:01)
[2025-08-01] MEDS: INSULIN (NOVOLOG MIX 70/30) 100 UNITS/ML MDV SQ SCH ×2 (06:23→17:16)
[2025-08-01 07:53] LABS: ABSOLUTE IMMATURE GRANULOCYTES 0.02 x10^3/uL (0.0-0.031); BASOPHILS # 0.09 x10^3/uL (0.01-0.08); EOSINOPHIL % 4.6 % (0.8-7.0); EOSINOPHILS # 0.41 x10^3/uL (0.04-0.54); MCHC 32.3 g/dl (32.3-36.5); MEAN CELL VOLUME 84.9 fl (79.0-92.2); MEAN PLT VOLUME 8.9 fl (9.4-12.4); MONOCYTE # 0.57 x10^3/uL (0.30-0.82); MONOCYTE % 6.4 % (5.3-12.2); RDW 16.7 % (12.2-16.4)
[2025-08-01] MEDS ORDERED: INSULIN (NOVOLOG MIX 70/30) 100 UNITS/ML MDV SQ SCH (08:20)
[2025-08-01 08:38] LABS: GLUCOSE,RANDOM 274.0 mg/dL (74-106)
[2025-08-01 08:40] LABS: CO2 21.0 mmol/L (21-32)
[2025-08-01 08:44] LABS: CREATININE 0.93 mg/dL (0.55-1.3)
[2025-08-01 18:47] VITALS: RESP 18
[2025-08-02 07:28] LABS: ABSOLUTE IMMATURE GRANULOCYTES 0.03 x10^3/uL (0.0-0.031); BASOPHILS # 0.10 x10^3/uL (0.01-0.08); EOSINOPHIL % 5.1 % (0.8-7.0); EOSINOPHILS # 0.46 x10^3/uL (0.04-0.54); MCHC 32.8 g/dl (32.3-36.5); MEAN CELL VOLUME 84.9 fl (79.0-92.2); MEAN PLT VOLUME 8.8 fl (9.4-12.4); MONOCYTE # 0.61 x10^3/uL (0.30-0.82); MONOCYTE % 6.8 % (5.3-12.2); RDW 17.2 % (12.2-16.4)
[2025-08-02 08:09] LABS: GLUCOSE,RANDOM 155.0 mg/dL (74-106)
[2025-08-02 08:10] LABS: CO2 19.0 mmol/L (21-32)
[2025-08-02 08:15] LABS: CREATININE 1.09 mg/dL (0.55-1.3)
[2025-08-02] MEDS ORDERED: INSULIN ASPART SLIDING SCALE (NOVOLOG) 1 VIAL SQ ONE (11:07)
[2025-08-02] MEDS: ERTAPENEM SODIUM 1 GM in SODIUM CHLORIDE 50 ML IVPB SCH (15:20)
[2025-08-02 16:04] VITALS: BP 149/79; PULSE 66; TEMP 97.3
== END 2025-08-02 16:48 | disposition home or self-care (01) | DRG 629 ==
LOC: JER 21:08 → JERBED 07-25 00:05 → J5S 07-25 10:15
PROVIDERS: ADMIT Internal Medicine; ATTEND Internal Medicine
PROC: 0QBP3ZX Excision of Left Metatarsal, Percutaneous Approach, Diagnostic (ICD-10-PCS; principal; 2025-07-30 09:30)
PROC: 02HV33Z Insertion of Infusion Device into Superior Vena Cava, Percutaneous Approach (ICD-10-PCS; 2025-08-02)
PROC: B518ZZA Fluoroscopy of Superior Vena Cava, Guidance (ICD-10-PCS; 2025-08-02)
DX: E11.69 Type 2 diabetes mellitus with other specified complication (principal); L03.116 Cellulitis of left lower limb; M86.172 Other acute osteomyelitis, left ankle and foot; I25.10 Atherosclerotic heart disease of native coronary artery without angina pectoris; L08.89 Other specified local infections of the skin and subcutaneous tissue; E86.0 Dehydration; I70.222 Atherosclerosis of native arteries of extremities with rest pain, left leg; R26.81 Unsteadiness on feet; S91.302A Unspecified open wound, left foot, initial encounter; I10 Essential (primary) hypertension; I25.2 Old myocardial infarction; E78.00 Pure hypercholesterolemia, unspecified; E11.42 Type 2 diabetes mellitus with diabetic polyneuropathy; B95.7 Other staphylococcus as the cause of diseases classified elsewhere; B95.2 Enterococcus as the cause of diseases classified elsewhere; Z95.5 Presence of coronary angioplasty implant and graft; Z89.422 Acquired absence of other left toe(s); Z89.432 Acquired absence of left foot; X58.XXXA Exposure to other specified factors, initial encounter; Y93.9 Activity, unspecified; Y92.9 Unspecified place or not applicable; Y99.9 Unspecified external cause status
CPT/HCPCS: 36415; 36569; 73610-TC-LT-FY; 73630-TC-LT; 73718-TC-LT; 80048; 80053; 82962; 85025; 85610; 85651; 85730; 86140; 86850; 86900; 86901; 87040; 87070; 87075; 87205; 93005; 93010; 93922; 93925-TC; 99285-25; G0480